=== PATIENT | female | born 1955 | race Caucasian/White ===

== ENCOUNTER 2018-11-28 18:40 | Emergency (ER) | payer SELFPAY ==
[2018-11-28 18:48] VITALS: BP 135/72; PULSE 116; RESP 19; TEMP 38.5; O2SAT 96; BMI 27.9
--- NOTE | 2018-11-28 18:55 | DI.RAD.S_ITS ---
PROCEDURE: XR CHEST 1V INDICATIONS: suspected sepsis TECHNIQUE: One view of the chest was acquired. COMPARISON: [facility], , CHEST 2 VIEW, 10/01/2015, 14:00. FINDINGS: Surgical changes and devices: None. Lungs and pleura: Mild increased pulmonary vasculature. No consolidation. No pleural effusions or pneumothorax. Mediastinum: Mediastinal contours appear normal. Heart size is normal. Bones and chest wall: No suspicious bony lesions. Overlying soft tissues appear unremarkable. Calcification in the kidney region of the right rotator cuff, may represent calcific tendinitis. IMPRESSION: Mild increased pulmonary vasculature markings suggestive of most mild fluid overload. No focal consolidation to suggest pneumonia. Dictated by: Yvon Barnett M.D. on 11/28/2018 at 19:46 Approved by: Yvon Barnett M.D. on 11/28/2018 at 19:49
--- NOTE | 2018-11-28 19:15 | ED.ABDPAIN ---
HPI - Abdominal Pain General Chief Complaint: Abdominal Pain Stated Complaint: diarrhea x4 days,fever, headache Time Seen by Provider: 11/28/18 19:00 Source: patient Mode of arrival: ambulatory Limitations: no limitations History of Present Illness HPI narrative: Patient is a 63-year-old female who presents with ongoing diarrhea and abdominal pain. She says she had crab 4 days ago, and started having diffuse explosive sandpaper like the diarrhea. She says she gets up in the middle of night to have diarrhea last night she was up at least 10 times. She started having fever yesterday she is now having abdominal cramping and pain. She denies any bloody stools. No vomiting denies any nausea she has been trying to keep fluids down she has been drinking 7 up but has a decrease in appetite. She has a previous history of colitis in feels like this might be similar. MD complaint: abdominal pain Quality: cramping Radiation: none Migration to: no migration Related Data Previous Rx's Medication Instructions Recorded azithromycin 500 mg PO DAILY 3 Days #3 tab 11/28/18 Allergies Allergy/AdvReac Type Severity Reaction Status Date / Time No Known Drug Allergies Allergy Verified 11/28/18 18:55 Review of Systems Review of Systems GENERAL: Denies chills, fatigue, malaise, fever, sweats, travel HEENT: Denies sinus pain, ear pain, sore throat, difficulty swallowing, neck pain RESPIRATORY: Denies dyspnea, cough, wheezing, hemoptysis, sputum. CARDIOVASCULAR: Denies chest pain, palpitations, orthopnea, edema GASTROINTESTINAL: see hPI : Denies dysuria, frequency, incontinence, hematuria, urinary retention, flank pain. MUSCULOSKELETAL: Denies weakness, joint pain, or bony pain SKIN: No rash, no erythema, no pruritus NEUROLOGIC: Denies weakness, dizziness, headache, numbness, change in speech, confusion PSYCHIATRIC: No concerning psychosocial issues. 12 point review of systems is negative except for those stated above and HPI [facility] Medical History Colitis (Acute) Gastric ulcer (Acute) Hiatal hernia (Acute) Social History Smoking Status: Current every day smoker Social History Smoking Status: Current every day smoker Exam Initial Vital Signs Initial Vital Signs: Vital Signs Temperature 101.3 F H 11/28/18 18:48 Pulse Rate 116 H 11/28/18 18:48 Respiratory Rate 19 11/28/18 18:48 Blood Pressure 135/72 11/28/18 18:48 Pulse Oximetry 96 11/28/18 18:48 GENERAL: Well-appearing, well-nourished and in no acute distress. HEENT: Head atraumatic,EOMI, pupils reactive, face symmetric, moist mucous membranes CARDIOVASCULAR: Regular rate and rhythm without murmurs, rubs or gallops. RESPIRATORY: Breath sounds equal bilaterally, no wheezes rales or rhonchi. ABDOMEN: Soft, slightly distended, lower abdominal tenderness no localization no guarding no rebound EXTREMITIES: Normal range of motion, no clubbing or edema. Neurovascularly intact NEUROLOGICAL: Alert and oriented x4.Normal gait and speech. Cranial nerves II through XII grossly intact. SKIN: Warm, dry, no laceration, no petechiae, no rashes or lesions. Course Orders Ordered: ED Orders 11/28/18 18:55 XR chest 1V Stat EKG-12 Lead Stat RT Consult Eval and Treat Now 11/28/18 19:05 Complete Blood Count AUTO DIFF Stat Comprehensive Metabolic Panel Stat Lactate (Lactic Acid) Stat Lipase Stat Partial Thromboplastin Time Stat Procalcitonin Stat Prothrombin Time INR Stat 11/28/18 19:17 GI Panel (Film Array) Stat 11/28/18 19:34 Blood Culture Stat Discontinued Medications Acetaminophen (Tylenol) 975 mg PO NOW ONE Stop: 11/28/18 19:11 Last Admin: 11/28/18 19:16 Dose: 975 mg Azithromycin (Zithromax) 500 mg PO NOW ONE Stop: 11/28/18 21:09 Last Admin: 11/28/18 21:12 Dose: 500 mg Sodium Chloride (Normal Saline 0.9%) 1,000 mls @ 1,000 mls/hr IV BOLUS ONE Stop: 11/28/18 19:54 Last Infusion: 11/28/18 20:11 Dose: 1,000 mls/hr Admin: 11/28/18 19:17 Dose: 1,000 mls/hr Sodium Chloride (Normal Saline 0.9%) 1,000 mls @ 1,000 mls/hr IV BOLUS ONE Stop: 11/28/18 20:09 Last Admin: 11/28/18 20:49 Dose: 1,000 mls/hr Ondansetron HCl (Zofran) 4 mg IV NOW ONE Stop: 11/28/18 19:12 Last Admin: 11/28/18 19:16 Dose: 4 mg Vital Signs - 8 hr 11/28/18 18:48 11/28/18 19:16 11/28/18 19:52 Temperature 101.3 F H 101.3 F H Pulse Rate 116 H 98 H Respiratory Rate 19 18 Blood Pressure 135/72 Blood Pressure [Left Arm] 108/67 Pulse Oximetry 96 93 11/28/18 21:10 Temperature 98.2 F Pulse Rate 83 Respiratory Rate 16 Blood Pressure Blood Pressure [Left Arm] 127/66 Pulse Oximetry 96 MDM - Abdominal Pain Lab Data Attestation: I reviewed the patient's lab results. Result diagrams: 11/28/18 19:05 11/28/18 19:05 Lab Results 11/28/18 11/28/18 11/28/18 Range/Units 19:05 19:05 19:05 WBC 9.7 (4.5-11.0) X10^3/uL RBC 4.66 (4.0-5.2) X10^6/uL Hgb 16.1 H (12.0-16.0) g/dL Hct 45.5 (36-46) % MCV 97.7 (80-100) fL MCH 34.5 H (26-34) PG MCHC 35.3 (30-36) % RDW 13.1 (11.6-14.8) % Plt Count 143 L (150-400) X10^3/uL Neut % (Auto) Not Reportable Lymph % (Auto) Not Reportable Fannin % (Auto) Not Reportable Eos % (Auto) Not Reportable Baso % (Auto) Not Reportable Lymph # (Auto) Not Reportable Fannin # (Auto) Not Reportable Baso # (Auto) Not Reportable Total Counted 100 Seg Neutrophils % 41.0 (38-70) % Band Neutrophils % 41.0 H (3-7) % Lymphocytes % (Manual) 17.0 L (25-45) % Monocytes % (Manual) 3.0 (2-11) % Eosinophils % (Manual) 0.0 L (2-4) % Neutrophils # (Manual) 7954 H (8256-2591) /uL RBC Morphology Normal morphology PT 11.5 (10.1-12.7) SECONDS INR 1.0 (0.9-1.3) APTT 29 (26.4-36.2) SECONDS Sodium (137-145) mmol/L Potassium (3.4-5.1) mmol/L Chloride (98-107) mmol/L Carbon Dioxide (22-32) mmol/L BUN (7-17) mg/dL Creatinine (0.52-1.04) mg/dL Estimated GFR (>60) mL/min BUN/Creatinine Ratio (6-22) Glucose (80-110) mg/dL Lactate (0.7-2.1) mmol/L Calcium (8.4-10.2) mg/dL Total Bilirubin (0.2-1.3) mg/dL AST (14-36) IU/L ALT (9-52) IU/L Alkaline Phosphatase (38-126) U/L Total Protein (6.3-8.2) g/dL Albumin (3.5-5.0) g/dL Globulin (1.7-4.1) g/dL Albumin/Globulin Ratio (1.0-2.8) Lipase (23-300) U/L Procalcitonin 0.51 H (<0.5) ng/mL Stl C. cayetanensis PCR (Not Detect) Stool Rotavirus (PCR) (Not Detect) Stool Adenovirus (PCR) (Not Detect) Stool Astrovirus (PCR) (Not Detect) Stool Cryptosporidium PCR (Not Detect) Stl E.coli Shiga Tox PCR (Not Detect) St Sh/Enteroin Ecoli PCR (Not Detect) Stool E coli O157 PCR Stl Enterotoxigenic E PCR (Not Detect) Stool EPEC (PCR) (Not Detect) Stl E. histolytica PCR (Not Detect) Stool Giardia Lamblia PCR (Not Detect) Stl P. shigelloides PCR (Not Detect) St Y.enterocolitica PCR (Not Detect) Stool Vibrio (PCR) (Not Detect) Stl Vibrio cholerae PCR (Not Detect) Stl Enteroaggr Ecoli PCR (Not Detect) Stl Norovirus GI/GII PCR (Not Detect) Campylobacter (PCR) (Not Detect) C. difficile Tox (PCR) (Not Detect) Salmonella (PCR) (Not Detect) 11/28/18 11/28/18 11/28/18 Range/Units 19:05 19:05 19:17 WBC (4.5-11.0) X10^3/uL RBC (4.0-5.2) X10^6/uL Hgb (12.0-16.0) g/dL Hct (36-46) % MCV (80-100) fL MCH (26-34) PG MCHC (30-36) % RDW (11.6-14.8) % Plt Count (150-400) X10^3/uL Neut % (Auto) Lymph % (Auto) Fannin % (Auto) Eos % (Auto) Baso % (Auto) Lymph # (Auto) Fannin # (Auto) Baso # (Auto) Total Counted Seg Neutrophils % (38-70) % Band Neutrophils % (3-7) % Lymphocytes % (Manual) (25-45) % Monocytes % (Manual) (2-11) % Eosinophils % (Manual) (2-4) % Neutrophils # (Manual) (1393-0695) /uL RBC Morphology PT (10.1-12.7) SECONDS INR (0.9-1.3) APTT (26.4-36.2) SECONDS Sodium 135 L (137-145) mmol/L Potassium 3.4 (3.4-5.1) mmol/L Chloride 102 (98-107) mmol/L Carbon Dioxide 19 L (22-32) mmol/L BUN 10 (7-17) mg/dL Creatinine 1.40 H (0.52-1.04) mg/dL Estimated GFR 38.1 L (>60) mL/min BUN/Creatinine Ratio 7.1 (6-22) Glucose 163 H (80-110) mg/dL Lactate 1.1 (0.7-2.1) mmol/L Calcium 9.6 (8.4-10.2) mg/dL Total Bilirubin 0.8 (0.2-1.3) mg/dL AST 48 H (14-36) IU/L ALT 38 (9-52) IU/L Alkaline Phosphatase 69 (38-126) U/L Total Protein 7.8 (6.3-8.2) g/dL Albumin 4.2 (3.5-5.0) g/dL Globulin 3.6 (1.7-4.1) g/dL Albumin/Globulin Ratio 1.2 (1.0-2.8) Lipase 65 (23-300) U/L Procalcitonin (<0.5) ng/mL Stl C. cayetanensis PCR Not detected (Not Detect) Stool Rotavirus (PCR) Not detected (Not Detect) Stool Adenovirus (PCR) Not detected (Not Detect) Stool Astrovirus (PCR) Not detected (Not Detect) Stool Cryptosporidium PCR Not detected (Not Detect) Stl E.coli Shiga Tox PCR Not detected (Not Detect) St Sh/Enteroin Ecoli PCR Not detected (Not Detect) Stool E coli O157 PCR Not Reportable Stl Enterotoxigenic E PCR Not detected (Not Detect) Stool EPEC (PCR) Not detected (Not Detect) Stl E. histolytica PCR Not detected (Not Detect) Stool Giardia Lamblia PCR Not detected (Not Detect) Stl P. shigelloides PCR Not detected (Not Detect) St Y.enterocolitica PCR Not detected (Not Detect) Stool Vibrio (PCR) Not detected (Not Detect) Stl Vibrio cholerae PCR Not detected (Not Detect) Stl Enteroaggr Ecoli PCR Not detected (Not Detect) Stl Norovirus GI/GII PCR Not detected (Not Detect) Campylobacter (PCR) Detected H (Not Detect) C. difficile Tox (PCR) Not detected (Not Detect) Salmonella (PCR) Not detected (Not Detect) MDM Narrative Medical decision making narrative: Patient given 2 L of IV fluids. She states that she overall is feeling much better she actually is hungry and wants to eat for the 1st time in a couple of days. GI panel is positive for Campylobacter. She is given 1 dose of azithromycin and a prescription. She overall does not seem septic she is ambulatory to the restroom and eating and tolerating oral fluids. At this time I did instruct her no Imodium use. Discharge Plan Departure Patient Disposition: Home Clinical Impression: Campylobacter diarrhea Discharge Date/Time: 11/28/18 21:13 Interventions: ED Discharge Assessment Last Done: 11/28/18 21:20 Instructions: DI for Bacterial Gastroenteritis -- Adult Activity Restrictions/Additional Instructions: *You have been diagnosed with Campylobacter diarrhea *What to do: Increased fluid intake recommend things with sugar and electrolytes such as Gatorade like product, Jell-O, applesauce, juice, may increase diet and food as tolerated *Continue to take medications as directed Azithromycin 500 mg once a day for 3 days DO NOT TAKE IMODIUM *Follow up with your primary care provider in 2-3 days *Return to ER if you should have increased pain persistent diarrhea inability to tolerate fluids or any new, worsening or concerning symptoms Prescriptions: New azithromycin 500 mg tablet 500 mg PO DAILY 3 Days Qty: 3 RF: 0 Referrals: [facility] [Outside]
[2018-11-28 19:16] VITALS: TEMP 38.5
[2018-11-28] MEDS: ACETAMINOPHEN 325 MG TABLET 975 MG PO (19:16)
[2018-11-28] MEDS: ONDANSETRON 4 MG/2 ML INJ IV (19:16)
[2018-11-28] MEDS: SODIUM CHLORIDE 0.9% 1,000 ML 1000 ML IV ×2 (19:17→20:49)
[2018-11-28 19:28] LABS: Prothrombin Time 11.5 SECONDS (10.1-12.7)
[2018-11-28 19:31] LABS: Lactate (Lactic Acid) 1.1 mmol/L (0.7-2.1); PTT Partial Thromboplastin Tim 29 SECONDS (26.4-36.2)
[2018-11-28 19:33] LABS: Hematocrit 45.5 % (36-46); Hemoglobin 16.1 g/dL (12.0-16.0); Mean Corpuscular HGB Conc 35.3 % (30-36); Mean Corpuscular Hemoglobin 34.5 PG (26-34); Mean Corpuscular Volume 97.7 fL (80-100); Platelet Count 143 X10^3/uL (150-400); Red Blood Cell Count 4.66 X10^6/uL (4.0-5.2); Red Cell Distribution Width 13.1 % (11.6-14.8); White Blood Cell Count 9.7 X10^3/uL (4.5-11.0)
[2018-11-28 19:34] LABS: Add Manual Diff / Slide Review YES
[2018-11-28 19:35] LABS: Alanine Aminotransferase 38 IU/L (9-52); Albumin 4.2 g/dL (3.5-5.0); Albumin Globulin Ratio 1.2 (1.0-2.8); Alkaline Phosphatase 69 U/L (38-126); Aspartate Aminotransferase 48 IU/L (14-36); BUN Creatinine Ratio 7.1 (6-22); Bilirubin Total 0.8 mg/dL (0.2-1.3); Blood Urea Nitrogen 10 mg/dL (7-17); Calcium 9.6 mg/dL (8.4-10.2); Carbon Dioxide 19 mmol/L (22-32); Chloride 102 mmol/L (98-107); Estimated Glomerular Filt Rate 38.1 mL/min (>60); Globulin 3.6 g/dL (1.7-4.1); Glucose 163 mg/dL (80-110); HEMOLYSIS < 15 (0-50); Lipase 65 U/L (23-300); Potassium 3.4 mmol/L (3.4-5.1); Sodium 135 mmol/L (137-145); Total Protein 7.8 g/dL (6.3-8.2)
[2018-11-28 19:52] VITALS: BP 108/67; PULSE 98; RESP 18; O2SAT 93
[2018-11-28 19:52] LABS: Procalcitonin 0.51 ng/mL (<0.5)
[2018-11-28 20:03] LABS: Total Cells Counted 100
[2018-11-28 20:04] LABS: Neutrophils Absolute Manual 7954 /uL (3000-5900); RBC Morphology Normal Morphology
[2018-11-28 21:05] LABS: Adenovirus F 40/41 Not Detected (Not Detect); Astrovirus Not Detected (Not Detect); Clostridium difficile toxin AB Not Detected (Not Detect); Cryptosporidium Not Detected (Not Detect); Cyclospora cayetanensis Not Detected (Not Detect); Entamoeba histolytica Not Detected (Not Detect); Enteroaggregative E.coli Not Detected (Not Detect); Enteropathogenic E.coli Not Detected (Not Detect); Enterotoxigenic E.coli It/st Not Detected (Not Detect); Giardia lamblia Not Detected (Not Detect); Norovirus GI/GII Not Detected (Not Detect); Plesiomonsa shigelloides Not Detected (Not Detect); Rotavirus A Not Detected (Not Detect); Salmonella Not Detected (Not Detect); Shiga-like toxin-prod E.coli Not Detected (Not Detect); Shigella/Enteroinvasive E.coli Not Detected (Not Detect); Vibrio Not Detected (Not Detect); Vibrio cholerae Not Detected (Not Detect); Yersinia enterocolitica Not Detected (Not Detect)
[2018-11-28 21:07] LABS: Campylobacter Detected (Not Detect)
[2018-11-28 21:10] VITALS: BP 127/66; PULSE 83; RESP 16; TEMP 36.8; O2SAT 96
[2018-11-28] MEDS: AZITHROMYCIN 250 MG TABLET 500 MG PO (21:12)
== END 2018-11-28 21:13 | disposition home or self-care (01) ==
PROVIDERS: Emergency Provider Emergency Medicine
DX: A04.5 Campylobacter enteritis (principal)
CPT/HCPCS: 36415; 36591; 71045; 80053; 83605; 83690; 84145; 85025; 85610; 85730; 87040; 87507; 93005; 93010; 96361; 96374; 99283; 99285; J2405

== ENCOUNTER → 2019-06-17 14:12 | Outpatient (CLI) | payer OTHER, SELFPAY ==
--- NOTE | 2019-06-17 | DI.US.S_ITS ---
PROCEDURE: US CAROTID DOPPLER BI INDICATIONS: MIXED HYPERLIPIDEMIA TECHNIQUE: Color and pulse Doppler interrogation was performed of both carotid systems, with image documentation and velocity measurements. COMPARISON: None. FINDINGS: Stenosis calculations are based on SRU (Society of Radiologists in Ultrasound) criteria. Right side: Brachial blood pressure: 146/75 mm Hg. Common carotid artery peak systolic velocity: 89 cm/sec. Internal carotid artery peak systolic velocity: 70 cm/sec. Internal carotid artery end diastolic velocity: 22 cm/sec. External carotid artery peak systolic velocity: 85 cm/sec. ICA/CCA peak systolic ratio: 0.8. Son scale imaging description: No plaque Percent internal carotid artery stenosis: None. Vertebral artery: Flow direction is antegrade. Left side: Brachial blood pressure: 144/81 mm Hg. Common carotid artery peak systolic velocity: 111 cm/sec. Internal carotid artery peak systolic velocity: 78 cm/sec. Internal carotid artery end diastolic velocity: 27 cm/sec. External carotid artery peak systolic velocity: 93 cm/sec. ICA/CCA peak systolic ratio: 0.7. Son scale imaging description: Minimal plaque at the bifurcation Percent internal carotid artery stenosis: Less than 50%. Vertebral artery: Flow direction is antegrade. IMPRESSION: No hemodynamically significant stenosis identified Dictated by: Clinton Medina M.D. on 06/17/2019 at 18:27 Approved by: Clinton Medina M.D. on 06/17/2019 at 18:28
== END ==
PROVIDERS: PCP Student in an Organized Health Care Education/Training Program; Referring Provider Student in an Organized Health Care Education/Training Program; Visit Provider Student in an Organized Health Care Education/Training Program
DX: E78.2 Mixed hyperlipidemia (principal)
CPT/HCPCS: 93880

== ENCOUNTER → 2019-10-08 09:32 | Outpatient (CLI) | payer OTHER, SELFPAY ==
--- NOTE | 2019-10-08 | DI.US.S_ITS ---
PROCEDURE: US ABDOMEN COMPLETE INDICATIONS: NAUSEA TECHNIQUE: Real-time scanning was performed of the abdominal and retroperitoneal organs, with image documentation. COMPARISON: None. FINDINGS: Liver: The liver demonstrates normal size. The liver demonstrates generalized increased echogenicity. This decreases ultrasound sensitivity for detection of hepatic masses. Gallbladder: No findings of gallstones or sludge are seen. The gallbladder wall is not thickened, measuring 3 mm or less. No specific pericholecystic fluid is seen. The sonographic Nation sign is negative. Biliary ducts: No diaz intrahepatic biliary ductal dilatation is seen. The common hepatic duct measures 5 mm and the common bile duct measures 9 mm. Pancreas: Visualized portions of the pancreas are sonographically normal. Spleen: Spleen is normal in size and homogeneous in echotexture. Kidneys: Kidneys are normal in size and echotexture. Right kidney measures 13.7 cm long; left kidney measures 11.6 cm long. No hydronephrosis or nephrolithiasis. No solid masses. Aorta: Visualized aorta is normal in caliber at less than 3 cm. Mild tortuosity is of the aorta. Iliacs: Proximal common iliac arteries are normal in caliber at less than 2.5 cm. IVC: Intrahepatic inferior vena cava is patent. Miscellaneous: No free abdominal fluid. IMPRESSION: Mild biliary dilatation. As clinically appropriate, an MRCP could be considered for further evaluation (assuming that there is no contraindication to MRI). Normal appearing gallbladder by ultrasound. The liver demonstrates increased echogenicity. This finding is nonspecific, yet it is most commonly attributed to fatty infiltration. Dictated by: Matt Waite M.D. on 10/08/2019 at 11:40 Approved by: Matt Waite M.D. on 10/08/2019 at 11:42
== END ==
PROVIDERS: PCP Student in an Organized Health Care Education/Training Program; Referring Provider Family Medicine; Visit Provider Family Medicine
DX: R11.0 Nausea (principal); K83.8 Other specified diseases of biliary tract
CPT/HCPCS: 76700

== ENCOUNTER → 2019-10-25 11:22 | Outpatient (CLI) | payer OTHER, SELFPAY | PROVIDERS: PCP Student in an Organized Health Care Education/Training Program; Referring Provider Student in an Organized Health Care Education/Training Program; Visit Provider Student in an Organized Health Care Education/Training Program | DX: K30 Functional dyspepsia (principal); Z53.20 Procedure and treatment not carried out because of patient's decision for unspecified reasons ==

== ENCOUNTER → 2019-12-10 11:51 | Outpatient (CLI) | payer OTHER, SELFPAY ==
[2019-12-10 13:13] LABS: Hemoglobin A1C% w Est Avg Glu 5.6 % (4.0-6.0)
[2019-12-10 13:53] LABS: TSH w/ Reflex to FT4 1.73 uIU/mL (0.47-4.68)
== END ==
PROVIDERS: PCP Student in an Organized Health Care Education/Training Program; Referring Provider Internal Medicine Cardiovascular Disease; Visit Provider Internal Medicine Cardiovascular Disease
DX: E78.1 Pure hyperglyceridemia (principal)
CPT/HCPCS: 36415; 83036; 84443

== ENCOUNTER → 2020-05-05 11:36 | Outpatient (CLI) | payer OTHER, SELFPAY ==
[2020-05-05 13:22] LABS: COVID19 -Nasal RAPID Negative (Negative)
== END ==
PROVIDERS: PCP Student in an Organized Health Care Education/Training Program; Visit Provider Nurse Practitioner
DX: Z20.822 Contact with and (suspected) exposure to COVID-19 (principal)
CPT/HCPCS: 87635

== ENCOUNTER 2020-05-07 14:08 | Day surgery (SDC) | payer OTHER, SELFPAY ==
--- NOTE | 2020-05-07 | PATH_ITS ---
[facility] Accession Number: [id number] . 01 Material submitted: . PART A: duodenum - DUODENAL THIRD PORTION PART B: gastrointestinal site - ANTRUM PART C: gastrointestinal site - FUNDUS PART D: gastrointestinal site - BODY PART E: esophagus, E-G Junction - 6 O'CLOCK GE JUNCTION PART F: esophagus, E-G Junction - 9 O'CLOCK GE JUNCTION PART G: esophagus, E-G Junction - 12 O'CLOCK GE JUNCTION PART H: esophagus, E-G Junction - 3 O'CLOCK GE JUNCTION . 01 Clinical history: . DX COLONOSCOPY . 02 Diagnosis: A. Duodenum, Third Portion, Biopsies: Duodenal mucosa with mildly increased intraepithelial lymphocytes; please see comment. Negative for dysplasia or malignancy. . B. Stomach, Antrum, Biopsy: Gastric antral mucosa with mild chronic inflammation. Negative for Helicobacter organisms by immunohistochemistry. Negative for intestinal metaplasia. Negative for dysplasia or malignancy. . C-D: Stomach, Fundus, Body, Biopsies: Gastric body mucosa with minimal chronic inflammation. No evidence of Heliobacter organisms on H/E stain. Negative for intestinal metaplasia. Negative for dysplasia or malignancy. . E. Gastroesophageal Junction, 6 o'clock, Biopsy: Squamocolumnar junctional mucosa with mild chronic inflammation. Negative for specialized intestinal metaplasia, dysplasia or malignancy. . F. Gastroesophageal Junction, 9 o'clock, Biopsy: Squamous mucosa with no diagnostic abnormality. No columnar mucosa present for evaluation. Negative for dysplasia or malignancy. . G-H: Gastroesophageal Junction, 12, 3 o'clock, Biopsies: Squamocolumnar junctional mucosa with no diagnostic abnormality. Negative for intestinal metaplasia. Negative for dysplasia and malignancy. . [facility] 05/13/2020 1507 Local . 02 Comment: Part A: The histologic sections show essentially normal length villi with increased intraepithelial lymphocytosis. The differential diagnosis for this finding includes partially treated or clinically latent celiac sprue, dermatitis herpetiformis, infectious gastroenteritis, stasis, tropical sprue, lymphocytic enterocolitis and other protein allergies. In addition, similar small bowel histologic can be seen in patients with other autoimmune disorders, idiopathic inflammatory bowel disease, and may be linked to use of NSAIDs or olmesartan. . 02 Electronically signed: . Kolby Crowley MD, PhD, Pathologist NPI- [id number] . 01 Gross description: . Part A: DUODENAL THIRD PORTION: Received in formalin is 1 fragment(s) of sanchez, soft tissue measuring 0.3 x 0.2 x 0.2 cm submitted entirely in 1 cassette(s) Part B: ANTRUM: Received in formalin are 2 fragment(s) of sanchez, soft tissue measuring 0.1 x 0.1 x 0.1 cm to 0.2 x 0.2 x 0.2 cm submitted entirely in 1 cassette(s) Part C: FUNDUS: Received in formalin are 2 fragment(s) of sanchez, soft tissue measuring 0.1 x 0.1 x 0.1 cm to 0.2 x 0.2 x 0.2 cm submitted entirely in 1 cassette(s) Part D: BODY: Received in formalin are 2 fragment(s) of sanchez, soft tissue measuring 0.2 x 0.2 x 0.1 cm to 0.3 x 0.3 x 0.3 cm submitted entirely in 1 cassette(s) Part E: 6 O'CLOCK GE JUNCTION: Received in formalin are 2 fragment(s) of sanchez, soft tissue measuring 0.1 x 0.1 x 0.1 cm in aggregate submitted entirely in 1 cassette(s) Part F: 9 O'CLOCK GE JUNCTION: Received in formalin is 1 fragment(s) of sanchez, soft tissue measuring 0.1 x 0.1 x 0.1 cm submitted entirely in 1 cassette(s) Part O'CLOCK GE JUNCTION: Received in formalin is 1 fragment(s) of sanchez, soft tissue measuring 0.1 x 0.1 x 0.1 cm submitted entirely in 1 cassette(s) Part H: 3 O'CLOCK GE JUNCTION: Received in formalin is 1 fragment(s) of sanchez, soft tissue measuring 0.2 x 0.2 x 0.1 cm submitted entirely in 1 cassette(s) /RD 05/10/2020 [facility]8 Local . 02 Microscopic: . B. An immunohistochemical stain was performed to evaluate for Helicobacter organisms and is negative. The control stain showed appropriate reactivity. . * This test was developed and its performance characteristics determined by [email or web address]. It has not been cleared or approved by the U.S. Food and Drug Administration. The FDA has determined that such clearance or approval is not necessary. This test is used for clinical purposes. It should not be regarded as investigational or for research. . 02 Pathologist provided ICD-10: K29.80, K29.70, K20.90 . 02 CPT . 740906, 053082, 938224, 715129, 239493, [id number], 133714, [id number], [id number] Performed at: 01 [facility] [id number] MD Rogelio Guevara MD Phone: [phone] Performed at: 02 [facility] [id number] [place] [id number] MD Eulalia Galarza MD Phone: [phone]
--- NOTE | 2020-05-07 12:14 | P.HP_ITS ---
History of Present Illness History of Present Illness Date Patient Seen: 05/07/20 Chief complaint: DX COLONOSCOPY Narrative: 64 Years Old Female seen today for consideration of a diagnostic EGD. Patient has a known hiatal hernia and history of gastritis. Last EGD in 2003. She has previously been controlled on sucralfate. In the last 4 months, she has had worsening epigastric pain. Right upper quadrant ultrasound on 10/08/2019 showed mild biliary dilatation and likely fatty liver disease. Follow-up MRCP on 12/02/2019 showed no biliary dilatation, duct stone, or stricture. Mild fatty liver disease was seen. She is taking Nexium 40 mg p.o. twice daily, correctly on empty stomach, and sucralfate 1 g p.o. up to 4 times daily with little relief. She does drink alcohol excessively, approximately 4-8 drinks per day and smokes half a pack a day, [id number] history. She does not use caffeine. No regular NSAID use. Denies nausea or vomiting. No dysphagia. Minimal fullness. Overall health issues have been stable, including no major cardiac events for at least 6 weeks. Past Medical History: Ectopic pregnancies, 1978, 1989 G I Bleed: 2007 ARTHRALGIA (ICD-719.40) (EGI81-R65.50) Muscle cramps (ICD-729.82) (SAH86-Q14.2) DYSPEPSIA (ICD-536.8) (KZY58-T57) Neuralgia (ICD-729.2) (WKS88-K78.2) HYPERLIPIDEMIA, MIXED (ICD-272.2) (UZJ79-O88.2) G E R D (ICD-530.81) (XLP97-I48.9) BRONCHITIS-CHRONIC (ICD-491.0) (VNA74-K02.0) SLEEP APNEA, OBSTRUCTIVE (ICD-327.23) (HQC12-S24.33) ALCOHOL DEPENDENCE (ICD-303.90) (RWE39-A36.20) ALCOHOLIC LIVER DISEASE, NOS (ICD-571.3) (HXM39-L82.9) Cigarette smoker (ICD-305.1) (YEB37-P94.210) Past Surgical History: Appendectomy Section x1 Tubal x 2, one medically managed, one surgically treated Upper endoscopy 07/18 or 2014 Colonoscopy for diarrhea, [facility] [place], approximately in her 30s Moh's procedure Family History: No family history of colon cancer of polyps. Social History: Reviewed history from 03/28/2014 and no changes required: Marital Status: Rich [birth year] Children: Son Occupation: Real estate Household Members: Education: Alcohol drinks/day: 4/day Packs/Day: 0.5 Pack years: 30 Patient History Medical History (Updated 12/13/18 @ 00:00 by ) Colitis Gastric ulcer Hiatal hernia Family & Social History Tobacco & Substance use: Smoking Status Current every day smoker alcohol intake frequency 0-2 drinks per day Substance Use Type marijuana Meds Home Medications and Allergies Home Medications Medication Instructions Recorded Confirmed Type Nexium 40 mg PO BID 05/07/20 05/07/20 History albuterol sulfate 2 puff INHALATION Q4H PRN 05/07/20 05/07/20 History fenofibrate nanocrystallized 145 mg PO DAILY 05/07/20 05/07/20 History rosuvastatin 5 mg PO DAILY 05/07/20 05/07/20 History sucralfate 1 g PO QID PRN 05/07/20 05/07/20 History Allergies Allergy/AdvReac Type Severity Reaction Status Date / Time No Known Drug Allergies Allergy Verified 05/07/20 14:18 Review of Systems Review of Systems ROS: Yes All systems reviewed with the patient and are negative except as otherwise documented Exam Narrative Exam Narrative: General: Alert and oriented, appearing stated age and in no acute distress. Head: Head normocephalic/atraumatic. (unchanged from 06/18/2019) Neck: Neck soft and supple, no lymphadenopathy. (unchanged from 06/18/2019) Lungs: Clear to auscultation bilaterally, no wheezes, rhonchi or rales. Heart: normal rate and regular rhythm, no murmurs, rubs, gallops, or clicks, Abdomen: abdomen soft, tender over epigastrium and right lower quadrant, no masses, organomegaly, or abdominal wall hernias, bowel sounds positive. Psych: alert and cooperative; normal mood and affect; normal attention span and concentration; cognition, remote and recent memory appear to be intact, Assessment & Plan Assessment & Plan narrative: 1. Dyspepsia 2. GERD 3. Hiatal hernia 4. Alcohol dependence Plan for EGD. The nature and character of the procedure as well as anticipated results were discussed. The possibility of not completing the procedure was also discussed. Possible complications including aspiration pneumonia, bleeding, perforation and reaction to medications either for sedation or preparation and missed lesions were discussed. Questions were answered and proceeding to the colonoscopy was elected. Informed consent signed. Due to patient's uncontrolled chronic medical issues including hypertriglyceridemia and risk factors sitting excessive alcohol use with alcohol dependence and COPD, will consult MD anesthesia for this high risk patient. I sincerely appreciate the referral allowing me to participate in this patient's care. Please contact me with any questions or concerns.
--- NOTE | 2020-05-07 12:16 | P.OP.ENDO_ITS ---
Operative Date/Time/Diagnoses Date of procedure: 05/07/20 Procedure Notes SCOAP/Timeout: 3:37 pm Procedure in detail: ENDOSCOPIST: Elisa Elizondo MD Anesthesiologist: Dr. Troy Sedation start time: 3:38 p.m. Sedation end time: 3:43 p.m. PROCEDURE: EGD with biopsy INDICATIONS: 1. Dyspepsia 2. GERD 3. Hiatal hernia MEDICATION: Incremental doses of Versed and fentanyl until an appropriate level of sedation was achieved. ASA Ratin DURATION OF PROCEDURE: 17 minutes. COMPLICATIONS: None. LIMITATIONS: None EXTENT OF PROCEDURE: Third portion of the Duodenum. PROCEDURE: The high-definition gastroduodenoscope was introduced into the pos terior oropharynx under direct vision after Hurricaine spray, noted IV sedation, and proper informed consent. The esophagus was identified and intubated under direct visualization. The scope was quickly passed through the esophagus and into the fundus of the stomach. A clear fundal pool was aspirated. The scope was then advanced to the antrum and the pylorus was identified. The scope was passed through the pylorus into the second and third portions of the duodenum. No abnormalities were noted in the duodenum, duodenal bulb or pyloric channel. Random biopsy taken x2. The antrum was mildly edematous and erythematous, targeted biopsy taken x2. J maneuver was produced. No abnormalities were noted of the proximal body, fundus or cardia. Random biopsies taken x2. A small hiatal hernia was noted. Scope was broken out of the J maneuver and the remainder of the stomach was carefully inspected upon withdrawal and was normal. Random biopsy x2. The stomach was carefully deflated of all air on withdrawal. The distal esophagus was carefully inspected and Z-line was noted to be irregular, 4 quadrant biopsies taken. Top of the gastric folds noted at 41 cm from the incisors; circumferential extent of the metaplasia was 39 cm from the incisors; maximal extent of the metaplasia was 39 cm from the incisors. The remainder of the esophagus was normal upon withdrawal. The larynx and vocal cords appeared to be unremarkable. IMPRESSION: 1. Antritis 2. Endoscopically suspected esophageal mucosa, C2M2 PLAN: 1. Follow-up in clinic status post pathology results. The possibility of missed lesion including a malignancy was discussed prior with the patient. Potential alarm symptoms have been discussed and should be reported by the patient immediately.
--- NOTE | 2020-05-07 12:17 | PM.OP.ENDO ---
Operative Date/Time/Diagnoses Date of procedure: 05/07/20 Procedure Notes Procedure in detail: ENDOSCOPIST: Elisa Elizondo MD Sedation RN: Sedation start time: Sedation end time: PROCEDURE: Colonoscopy [] INDICATIONS: 1. Screening for colon cancer MEDICATION: Levsin 0.125 mg sublingual, incremental doses of Versed and fentanyl until appropriate level sedation achieved. ASA CLASS: 2 CECAL WITHDRAWAL TIME: [] COMPLICATIONS: None. EXTENT OF PROCEDURE: Cecum. QUALITY OF PREP: []Good with portions of liquid stool. PROCEDURE: Prior to insertion of the colonoscope, a digital rectal examination was accomplished with circumferential palpation of the distal rectal mucosa without significant findings being noted.[] The high-definition [] colonoscope was passed into the rectum in the usual fashion and advanced over to the cecum without difficulty. The ileocecal valve, appendiceal stoma, and medial wall all could be inspected and []no abnormalities were seen. ASCENDING COLON: J maneuver was produced in the cecum and the proximal folds of the ascending colon were carefully inspected to the hepatic flexure and []. As the colonoscope was withdrawn, care was taken to expose and inspect the haustral folds and no abnormalities were seen. [] HEPATIC FLEXURE: Normal no polyps, diverticula or other abnormalities. [] TRANSVERSE COLON: Normal no polyps, diverticula or other abnormalities. [] DESCENDING COLON: Normal no polyps, diverticula or other abnormalities. [] SIGMOID COLON: Normal no polyps, diverticula or other abnormalities. [] RECTUM: Normal. J maneuver was produced. There was no significant perianal disease. The J maneuver was broken. The remainder of the rectum was inspected and there was [] no external hemorrhoid disease. The scope was withdrawn. IMPRESSION: 1. [] PLAN: 1. [] The possibility of a missed lesion including a malignancy has been discussed with the patient previously. Potential alarm symptoms have been discussed and should be reported immediately.
[2020-05-07 14:38] VITALS: BP 152/88; PULSE 88; RESP 18; TEMP 36.5; O2SAT 97; BMI 27.3
[2020-05-07] MEDS: LACTATED RINGERS 1,000 ML 200 ML IV (15:06)
[2020-05-07 16:05] VITALS: BP 132/82; PULSE 75; RESP 14; TEMP 36.7; O2SAT 96
[2020-05-07 16:10] VITALS: BP 141/82; PULSE 74; RESP 12; O2SAT 97
[2020-05-07 16:15] VITALS: BP 141/82; PULSE 71; RESP 12; TEMP 36.6; O2SAT 98
--- NOTE | 2020-05-07 16:31 | SUR.PHASEII ---
Pt has met criteria for discharge: VSS, denied pain or nausea, able to drink fluids without difficulty, up to toilet to void x 1. Discharge instructions discussed with pt, all questions answered. Transported via W/C to private vehicle.
== END 2020-05-07 16:33 | disposition home or self-care (01) ==
PROVIDERS: PCP Student in an Organized Health Care Education/Training Program; Referring Provider Student in an Organized Health Care Education/Training Program; Visit Provider Student in an Organized Health Care Education/Training Program
PROC: 0DJ08ZZ Inspection of Upper Intestinal Tract, Via Natural or Artificial Opening Endoscopic (ICD-10-PCS; CPT 43235; principal; 2020-05-07 15:15)
DX: K29.50 Unspecified chronic gastritis without bleeding (principal); K21.00 Gastro-esophageal reflux disease with esophagitis, without bleeding; K44.9 Diaphragmatic hernia without obstruction or gangrene; J44.9 Chronic obstructive pulmonary disease, unspecified; F10.20 Alcohol dependence, uncomplicated; F17.210 Nicotine dependence, cigarettes, uncomplicated; K29.80 Duodenitis without bleeding
CPT/HCPCS: 43239

== ENCOUNTER → 2020-06-25 14:40 | Outpatient (CLI) | payer OTHER, SELFPAY ==
[2020-06-25] MEDS: COVID-19 VACC, Ad26(JANSSEN)/PF 0.5 ML IM (14:49)
== END ==
PROVIDERS: PCP Student in an Organized Health Care Education/Training Program; Visit Provider Internal Medicine
DX: Z23 Encounter for immunization (principal)
CPT/HCPCS: 0031A; 91303

== ENCOUNTER → 2020-11-16 08:54 | Outpatient (ROUT) | payer OTHER, SELFPAY ==
[2020-11-16 09:08] LABS: D Dimer 204 ng/mL (<230)
== END ==
PROVIDERS: PCP Student in an Organized Health Care Education/Training Program; Visit Provider Student in an Organized Health Care Education/Training Program
DX: M79.606 Pain in leg, unspecified (principal)
CPT/HCPCS: 85379

== ENCOUNTER → 2021-03-01 14:40 | Outpatient (CLI) | payer OTHER, SELFPAY ==
[2021-03-01 15:24] LABS: Add Manual Diff / Slide Review NO; Basophils Absolute Auto 0 /uL (0-100); Basophils Percent Auto 0.6 % (0-2); Eosinophils Absolute Auto 100 /uL (0-450); Eosinophils Percent Auto 1.7 % (2-4); Hematocrit 41.9 % (36-46); Hemoglobin 14.6 g/dL (12.0-16.0); Lymphocytes Absolute Auto 3000 /uL (1100-4500); Lymphocytes Percent Auto 44.6 % (25-40); Mean Corpuscular HGB Conc 34.8 % (30-36); Mean Corpuscular Hemoglobin 32.4 PG (26-34); Mean Corpuscular Volume 93.3 fL (80-100); Monocytes Absolute Auto 500 /uL (0-900); Monocytes Percent Auto 7.4 % (3-14); Neutrophils Absolute Auto 3100 /uL (1500-7000); Neutrophils Percent Auto 45.7 % (50-75); Platelet Count 231 X10^3/uL (150-400); Red Blood Cell Count 4.49 X10^6/uL (4.0-5.2); Red Cell Distribution Width 12.3 % (11.6-14.8); White Blood Cell Count 6.7 X10^3/uL (4.5-11.0)
== END ==
PROVIDERS: PCP Family Medicine; Referring Provider Family Medicine; Visit Provider Family Medicine
DX: K11.20 Sialoadenitis, unspecified (principal)
CPT/HCPCS: 36415; 85025

== ENCOUNTER → 2021-03-25 08:58 | Outpatient (CLI) | payer OTHER, SELFPAY ==
[2021-03-25 09:39] LABS: Alanine Aminotransferase 26 IU/L (<35); Albumin 4.3 g/dL (3.5-5.0); Albumin Globulin Ratio 1.5 (1.0-2.8); Alkaline Phosphatase 46 U/L (38-126); Aspartate Aminotransferase 38 IU/L (14-36); BUN Creatinine Ratio 19.8 (6-22); Bilirubin Total 0.6 mg/dL (0.2-1.3); Blood Urea Nitrogen 18 mg/dL (7-17); Carbon Dioxide 28 mmol/L (22-32); Chloride 105 mmol/L (98-107); Cholesterol 244 mg/dL (140-199); Estimated Glomerular Filt Rate > 60.0 mL/min (>60); Globulin 2.9 g/dL (1.7-4.1); Glucose 114 mg/dL (80-110); HDL Cholesterol 60 mg/dL (40-60); HEMOLYSIS < 15 (0-50); LDL Cholesterol Calculated 110 mg/dL (<100); Potassium 4.2 mmol/L (3.4-5.1); Sodium 140 mmol/L (137-145); Total Protein 7.2 g/dL (6.3-8.2); Triglycerides 371 mg/dL (35-150)
== END ==
PROVIDERS: PCP Family Medicine; Referring Provider Family Medicine; Visit Provider Family Medicine
DX: E78.1 Pure hyperglyceridemia (principal); R73.9 Hyperglycemia, unspecified
CPT/HCPCS: 36415; 80053; 80061

== ENCOUNTER → 2021-03-28 15:45 | Outpatient (CLI) | payer OTHER, SELFPAY ==
--- NOTE | 2021-03-28 15:46 | DI.CT.S_ITS ---
PROCEDURE: CT SOFT TISSUE NECK W CON INDICATIONS: 65-year-old female with right-sided neck mass. History of smoking and lip cancer TECHNIQUE: After the administration of intravenous contrast, 3.0 mm axial sections acquired from the sella to the aortic arch. Additional oblique axial 3.0 mm sections acquired through the pharynx. 3 mm thick coronal and sagittal reformats were generated. For radiation dose reduction, the following was used: automated exposure control. COMPARISON: None. FINDINGS: Image quality: Excellent. Lymph nodes: No enlarged lymph nodes seen throughout the neck. Vessels: Visualized vasculature appears patent. Neck spaces: The oropharynx, nasopharynx, and pharynx demonstrate no mucosal lesions. The vocal cords, false vocal cords, pyriform sinuses, epiglottis, vallecula, and tongue base all appear normal. Extramucosal spaces appear unremarkable. Glands: The parotid and submandibular glands appear normal. Thyroid gland unremarkable. Miscellaneous: Visualized brain and orbits appear normal. Lung apices appear clear. Superficial soft tissues appear normal. Bones: No suspicious bony lesions. Visualized sinuses and mastoids appear unremarkable. Degenerative arthropathy and disc disease noted in the cervical spine. Rounded subcoracoid densities associated with the right scapula may reflect small loose bodies or prior injury. IMPRESSION: 1. No CT evidence of mass lesion in the neck. Scattered nonenlarged deep cervical lymph nodes probably reactive. No adenopathy. 2. Degenerative cervical spine changes Dictated by: Shubham Mejia M.D. on 03/28/2021 at 16:38 Approved by: Shubham Mejia M.D. on 03/28/2021 at 16:46
== END ==
PROVIDERS: PCP Family Medicine; Referring Provider Family Medicine; Visit Provider Family Medicine
DX: R22.1 Localized swelling, mass and lump, neck (principal); M47.812 Spondylosis without myelopathy or radiculopathy, cervical region; Z85.819 Personal history of malignant neoplasm of unspecified site of lip, oral cavity, and pharynx; Z87.891 Personal history of nicotine dependence
CPT/HCPCS: 70491; Q9967

== ENCOUNTER → 2021-05-02 08:23 | Outpatient (CLI) | payer OTHER, SELFPAY ==
[2021-05-02 09:13] LABS: Hemoglobin A1C% w Est Avg Glu 5.9 % (4.0-6.0)
[2021-05-02 09:22] LABS: Alanine Aminotransferase 27 IU/L (<35); Albumin 4.1 g/dL (3.5-5.0); Albumin Globulin Ratio 1.2 (1.0-2.8); Alkaline Phosphatase 60 U/L (38-126); Aspartate Aminotransferase 34 IU/L (14-36); BUN Creatinine Ratio 17.5 (6-22); Bilirubin Total 0.5 mg/dL (0.2-1.3); Blood Urea Nitrogen 14 mg/dL (7-17); Calcium 9.8 mg/dL (8.4-10.2); Carbon Dioxide 28 mmol/L (22-32); Chloride 106 mmol/L (98-107); Cholesterol 221 mg/dL (140-199); Estimated Glomerular Filt Rate > 60.0 mL/min (>60); Globulin 3.3 g/dL (1.7-4.1); Glucose 115 mg/dL (80-110); HDL Cholesterol 49 mg/dL (40-60); HEMOLYSIS < 15 (0-50); LDL Cholesterol Calculated 129 mg/dL (<100); Potassium 4.2 mmol/L (3.4-5.1); Sodium 137 mmol/L (137-145); Total Protein 7.4 g/dL (6.3-8.2); Triglycerides 214 mg/dL (35-150)
[2021-05-02 10:01] LABS: Add Manual Diff / Slide Review NO; Basophils Absolute Auto 0 /uL (0-100); Basophils Percent Auto 0.4 % (0-2); Eosinophils Absolute Auto 200 /uL (0-450); Hematocrit 38.7 % (36-46); Hemoglobin 13.7 g/dL (12.0-16.0); Lymphocytes Absolute Auto 2600 /uL (1100-4500); Mean Corpuscular HGB Conc 35.3 % (30-36); Mean Corpuscular Volume 93.4 fL (80-100); Monocytes Absolute Auto 900 /uL (0-900); Monocytes Percent Auto 8.6 % (3-14); Neutrophils Absolute Auto 6200 /uL (1500-7000); Platelet Count 254 X10^3/uL (150-400); Red Blood Cell Count 4.15 X10^6/uL (4.0-5.2); Red Cell Distribution Width 12.3 % (11.6-14.8); White Blood Cell Count 9.9 X10^3/uL (4.5-11.0)
== END ==
PROVIDERS: PCP Family Medicine; Referring Provider Family Medicine; Visit Provider Family Medicine
DX: K11.20 Sialoadenitis, unspecified (principal); R22.1 Localized swelling, mass and lump, neck; R73.03 Prediabetes
CPT/HCPCS: 36415; 80053; 80061; 83036; 85025

== ENCOUNTER → 2021-08-18 12:30 | Outpatient (CLI) | payer OTHER, SELFPAY ==
[2021-08-19 08:08] LABS: Candida species Negative (Negative); Gardnerella vaginalis Negative (Negative); Trichomoas vaginalis Negative (Negative)
== END ==
PROVIDERS: PCP Family Medicine; Visit Provider Physician Assistant Medical
DX: N76.0 Acute vaginitis (principal)
CPT/HCPCS: 87480; 87510; 87660

== ENCOUNTER → 2021-10-11 12:26 | Outpatient (CLI) | payer MEDICARE, SELFPAY ==
--- NOTE | 2021-10-11 12:27 | DI.RAD.S_ITS ---
PROCEDURE: XR KNEE LT 3V INDICATIONS: progressive pain TECHNIQUE: 3 views of the knee were acquired. COMPARISON: None. FINDINGS: Bones: No fractures or dislocations. No suspicious bony lesions. Mild medial and lateral compartment osteoarthritis. Soft tissues: No joint effusion. No suspicious soft tissue calcifications. IMPRESSION: Mild osteoarthritis. Dictated by: Tonie Yarbrough MD, PhD on 10/11/2021 at 16:28 Approved by: Tonie Yarbrough MD, PhD on 10/11/2021 at 16:29
== END ==
PROVIDERS: PCP Family Medicine; Referring Provider Family Medicine; Visit Provider Family Medicine
DX: M17.12 Unilateral primary osteoarthritis, left knee (principal); M25.562 Pain in left knee
CPT/HCPCS: 73562

== ENCOUNTER → 2022-05-09 14:44 | Outpatient (CLI) | payer OTHER, SELFPAY ==
--- NOTE | 2022-05-09 14:46 | DI.MG.S_ITS ---
BILATERAL DIGITAL SCREENING MAMMOGRAM 3D/2D WITH CAD: 05/09/2022 CLINICAL: Routine screening. Comparison is made to exam dated: 12/22/2011 mammogram - [facility]. Both breasts are heterogeneously dense, which may obscure small masses (category c / 51-75% glandular tissue). Current study was also evaluated with a Computer Aided Detection (CAD) system. No significant masses, calcifications, or other findings are seen in either breast. There has been no significant interval change. IMPRESSION: NEGATIVE There is no mammographic evidence of malignancy. A 1 year screening mammogram is recommended. Based on the Tyrer Cuzick model (a risk assessment model) the patient's lifetime risk is 9.2% and her 10 year risk is 4.5%. According to the ACR, ACS, and NCCN guidelines, an annual breast MRI exam along with mammogram is recommended if the patient's lifetime risk is 20% or greater. This exam was interpreted at Station ID: [id number]. NOTE: For mammograms, a report in lay terms will be sent to the patient. Approximately 15% of breast malignancies will not be visualized mammographically. In the management of a palpable breast mass, a negative mammogram must not discourage biopsy of a clinically suspicious lesion. Electronically Signed By: Yvon montelongo/pamela:05/10/2022 10:38:57 letter sent: Normal Exam ACR BI-RADS Category 1: Negative [id number]
== END ==
PROVIDERS: PCP Family Medicine; Referring Provider Family Medicine; Visit Provider Family Medicine
DX: Z12.31 Encounter for screening mammogram for malignant neoplasm of breast (principal)
CPT/HCPCS: 77063; 77067

== ENCOUNTER → 2022-06-01 | Outpatient (CLI) | payer OTHER, SELFPAY ==
--- NOTE | 2022-06-01 11:17 | DI.CT.S_ITS ---
PROCEDURE: CT SOFT TISSUE NECK W CON INDICATIONS: Anterior LF Neck Mass TECHNIQUE: After the administration of intravenous contrast, 3.0 mm axial sections acquired from the sella to the aortic arch. 3 mm thick coronal and sagittal reformats were generated. For radiation dose reduction, the following was used: automated exposure control. COMPARISON: [facility], CT, CT SOFT TISSUE NECK W CON, 03/28/2021, 15:54. FINDINGS: Image quality: Excellent. Lymph nodes: No enlarged lymph nodes seen throughout the neck. Vessels: Visualized vasculature appears patent. Neck spaces: The oropharynx, nasopharynx, and pharynx demonstrate no mucosal lesions. The vocal cords, false vocal cords, pyriform sinuses, epiglottis, vallecula, and tongue base all appear normal. Extramucosal spaces appear unremarkable. Glands: The parotid and submandibular glands appear normal. Thyroid gland unremarkable. Miscellaneous: Visualized brain and orbits appear normal. Lung apices appear clear. Superficial soft tissues appear normal. Bones: No suspicious bony lesions. Visualized sinuses and mastoids appear unremarkable. Multilevel degenerative disc disease and arthropathy in the lumbar spine. Incidental calcified loose bodies associated with the right glenohumeral joint BB marker in left lower neck does not correspond with soft tissue mass lesion. Prominent subcutaneous fat noted IMPRESSION: No evidence of mass lesion. Marked palpable abnormality in the left lower neck corresponds with prominent subcutaneous fat. Degenerative disc disease and arthropathy in the cervical spine. Incidental right glenohumeral calcified loose bodies Approved by: Shubham Mejia M.D. on 06/01/2022 at 17:05
== END ==
PROVIDERS: PCP Family Medicine; Referring Provider Family Medicine; Visit Provider Family Medicine
DX: R22.1 Localized swelling, mass and lump, neck (principal); M50.30 Other cervical disc degeneration, unspecified cervical region; M47.812 Spondylosis without myelopathy or radiculopathy, cervical region
CPT/HCPCS: 70491; Q9967

== ENCOUNTER → 2022-07-28 08:00 | Outpatient (CLI) | payer OTHER, SELFPAY | PROVIDERS: PCP Family Medicine; Referring Provider Family Medicine; Visit Provider Surgery | DX: Z12.11 Encounter for screening for malignant neoplasm of colon (principal); Z12.12 Encounter for screening for malignant neoplasm of rectum ==

== ENCOUNTER 2022-09-22 12:00 | Day surgery (SDC) | payer OTHER, SELFPAY | END 2022-09-22 12:05 | disposition home or self-care (01) | LOC: ENDO 03-01 12:13 | PROVIDERS: PCP Family Medicine; Referring Provider Surgery; Visit Provider Surgery | DX: Z53.09 Procedure and treatment not carried out because of other contraindication (principal) ==

== ENCOUNTER → 2023-02-06 08:26 | Outpatient (CLI) | payer OTHER, SELFPAY ==
--- NOTE | 2023-02-06 09:07 | DI.RAD.S_ITS ---
PROCEDURE: XR CHEST 2V INDICATIONS: Chronic cough TECHNIQUE: 2 views of the chest were acquired. COMPARISON: [facility], CR, XR CHEST 1V, 11/28/2018, 19:02. FINDINGS: Surgical changes and devices: None. Lungs and pleura: Lungs are clear. No pleural effusions or pneumothorax. Mediastinum: Mediastinal contours are normal. Heart size is normal. Bones and chest wall: No suspicious bony abnormalities. Soft tissues appear unremarkable. IMPRESSION: No acute cardiopulmonary abnormality is seen. Dictated by: Saqib Escalante M.D. on 02/06/2023 at 13:27 Approved by: Saqib Escalante M.D. on 02/06/2023 at 13:29
[2023-02-06 09:13] LABS: Add Manual Diff / Slide Review NO; Basophils Absolute Auto 0 /uL (0-100); Basophils Percent Auto 0.5 % (0-2); Eosinophils Absolute Auto 200 /uL (0-450); Eosinophils Percent Auto 2.5 % (2-4); Hematocrit 42.2 % (36-46); Hemoglobin 14.7 g/dL (12.0-16.0); Lymphocytes Absolute Auto 2600 /uL (1100-4500); Lymphocytes Percent Auto 39.8 % (25-40); Mean Corpuscular HGB Conc 34.9 % (30-36); Mean Corpuscular Volume 94.6 fL (80-100); Monocytes Absolute Auto 500 /uL (0-900); Monocytes Percent Auto 8.2 % (3-14); Neutrophils Absolute Auto 3200 /uL (1500-7000); Platelet Count 204 X10^3/uL (150-400); Red Blood Cell Count 4.46 X10^6/uL (4.0-5.2); Red Cell Distribution Width 12.5 % (11.6-14.8); White Blood Cell Count 6.5 X10^3/uL (4.5-11.0)
[2023-02-06 09:19] LABS: Hemoglobin A1C% w Est Avg Glu 6.2 % (4.0-6.0)
[2023-02-06 09:25] LABS: Alanine Aminotransferase 25 IU/L (<35); Albumin 4.3 g/dL (3.5-5.0); Albumin Globulin Ratio 1.4 (1.0-2.8); Alkaline Phosphatase 62 U/L (38-126); Aspartate Aminotransferase 35 IU/L (14-36); BUN Creatinine Ratio 21.2 (6-22); Bilirubin Total 0.6 mg/dL (0.2-1.3); Blood Urea Nitrogen 18 mg/dL (7-17); Carbon Dioxide 27 mmol/L (22-32); Chloride 104 mmol/L (98-107); Cholesterol 268 mg/dL (140-199); Estimated Glomerular Filt Rate > 60 mL/min (>60); Glucose 120 mg/dL (80-110); HDL Cholesterol 56 mg/dL (40-60); HEMOLYSIS < 15 (0-50); Potassium 4.3 mmol/L (3.4-5.1); Sodium 137 mmol/L (137-145); Total Protein 7.3 g/dL (6.3-8.2); Triglycerides 439 mg/dL (35-150)
== END ==
PROVIDERS: PCP Family Medicine; Referring Provider Family Medicine; Visit Provider Family Medicine
DX: Z00.00 Encounter for general adult medical examination without abnormal findings (principal); E78.1 Pure hyperglyceridemia; R05.3 Chronic cough
CPT/HCPCS: 36415; 71046; 80053; 80061; 83036; 84443; 85025

== ENCOUNTER → 2023-07-17 14:12 | Outpatient (CLI) | payer OTHER, SELFPAY ==
--- NOTE | 2023-07-17 14:13 | DI.RAD.S_ITS ---
PROCEDURE: XR LUMBAR SPINE MIN 4V INDICATIONS: Low back pain TECHNIQUE: 5 views of the lumbar spine were acquired, including bilateral oblique views. COMPARISON: None. FINDINGS: Bones: 5 nonrib-bearing vertebrae are present. Levocurvature of the lumbar spine. Straightening of the normal lumbar lordosis. Mild anterolisthesis of L2 on L3, L3 on L4 and L4 on L5. There is multilevel facet arthropathy, worse at L4-5 and L5-S1. Mild multilevel disc height loss with degenerative endplate changes and spurring is present. No vertebral body compression fractures. No suspicious bony lesions. Soft tissues: Overlying bowel gas pattern is normal. No suspicious soft tissue calcifications. Atherosclerotic vascular calcifications. Oblique images: No pars defects. IMPRESSION: Mild multilevel degenerative changes of the lumbar spine. Dictated by: Joel Camargo M.D. on 07/17/2023 at 15:56 Approved by: Joel Camargo M.D. on 07/17/2023 at 15:57
== END ==
PROVIDERS: PCP Family Medicine; Referring Provider Physician Assistant; Visit Provider Physician Assistant
DX: M47.816 Spondylosis without myelopathy or radiculopathy, lumbar region (principal); M47.817 Spondylosis without myelopathy or radiculopathy, lumbosacral region; M54.50 Low back pain, unspecified; M43.16 Spondylolisthesis, lumbar region
CPT/HCPCS: 72110

== ENCOUNTER 2023-10-31 10:19 | Outpatient (CLI) | payer OTHER, SELFPAY ==
[2023-10-31 10:25] VITALS: BP 169/92; PULSE 96; RESP 18; TEMP 36.5; O2SAT 96
[2023-10-31 10:50] VITALS: BP 174/80; PULSE 82; RESP 18; O2SAT 97
[2023-10-31 10:55] VITALS: BP 172/84; PULSE 77; RESP 15; O2SAT 97
[2023-10-31] MEDS: DEXAMETHASONE 10 MG/ML VIAL INJ (10:55)
[2023-10-31] MEDS: iopamidoL 15 ML VIAL 3 ML INJ (10:55)
[2023-10-31] MEDS: LIDOCAINE 1% (PF) 5 ML INJ (10:56)
[2023-10-31 11:00] VITALS: BP 172/87; PULSE 77; RESP 20; O2SAT 96
--- NOTE | 2023-10-31 11:00 | DI.RAD.S_ITS ---
PROCEDURE: PAIN L INTERLAMINAR/CAUDAL INJ INDICATIONS: L4-5 interlaminar YVONNE COMPARISON: [facility], MR, MR LUMBAR SPINE WO CON, 10/01/2023, 10:46. [facility], CR, XR LUMBAR SPINE MIN 4V, 07/17/2023, 14:20. FINDINGS: Fluoroscopic spot filming was performed to verify placement of a spinal needle at the L4-L5 level, as labeled on the films. Appropriate location of the needle tip was confirmed by injection of iodinated contrast. IMPRESSION: Intraprocedural examination within normal limits. Dictated by: Matt Waite M.D. on 10/31/2023 at 18:50 Approved by: Matt Waite M.D. on 10/31/2023 at 18:51
[2023-10-31 11:05] VITALS: BP 165/88; PULSE 76; RESP 16; O2SAT 96
--- NOTE | 2023-10-31 12:03 | P.PCN_ITS ---
Date/Time/Diagnoses Date of procedure: 10/31/23 Time of procedure: 11:00 Procedure Notes Physician: Cullen Hartman Total Fluoroscopy time (seconds): 14 Total sedation minutes: 0 Procedure in detail & Post-procedure care: L4-5 Interlaminar Epidural Steroid Injection Indications: Priyanka is presenting for treatment of lumbar radiculopathy with low back and leg pain. Preoperative diagnosis: Lumbar radiculopathy Postoperative diagnosis: Same Focused Examination: Ax3 Mood and affect are normal Vital Signs: VSS Consent: Following review of allergies and potential side effects/complications, including, but not necessarily limited to, infection, allergic reaction, local tissue breakdown, stroke, temporary or permanent nerve injury, paralysis, and possible , the patient indicated that they understood and agreed to proceed.? An informed consent document was signed by the patient, witnessed by a nurse and placed in the patient's chart.? Additionally, other treatment options including medications and physical therapy were reviewed with the patient. All questions were answered. Site was then marked. Anesthesia: Local Position: Prone Monitoring: NIBP, Pulse oximetry, 3 lead EKG Needle used: 18 G 3.5? Tuohy Contrast: Isovue 300M Injectate: Dexamethasone 10 mg with 1% lidocaine 2 mL Technique: The skin was prepped with chloraprep and then draped in a sterile fashion. Time out was performed as per protocol. Oxygen applied via NC. Skin and subcutaneous structures of the needle entry site was then infiltrated with 3 mL of lidocaine 1%. Under AP, lateral and contralateral oblique fluoroscopic control, the Tuohy needle was guided into the L4-5 epidural space. The space was accessed with loss of resistance technique. Isovue 300M was then injected and the spread was consistent with the epidural space. There was no evidence for intravascular or intrathecal uptake. After negative aspiration, the above- mentioned injectate was then slowly administered and the needle withdrawn. The patient expressed no unusual discomfort or paresthesias during the injection. Band-Aids applied to injection sites. EBL: less than 1 ml Complications: None Post Procedure: Patient was taken to the recovery and monitored. The patient was provided a Pain Log to continue to record the patient's response to the target- specific procedure prior to the patient's follow-up visit with the referring physician. Patient was stable upon discharge. Detailed post procedure instructions were provided. Patient was asked to call in the event of worsening pain, fever, weakness, numbness or bladder or bowel incontinence.
== END 2023-10-31 11:11 | disposition home or self-care (01) ==
LOC: RAD 10:19
PROVIDERS: PCP Family Medicine; Referring Provider Anesthesiology; Visit Provider Anesthesiology
DX: M54.16 Radiculopathy, lumbar region (principal)
CPT/HCPCS: 62323; J1100

== ENCOUNTER → 2023-11-30 13:55 | Outpatient (CLI) | payer OTHER, SELFPAY ==
--- NOTE | 2023-11-30 13:56 | DI.RAD.S_ITS ---
PROCEDURE: XR CERVICAL SPINE 4V OR 5V INDICATIONS: Neck pain TECHNIQUE: 5 views of the cervical spine acquired. COMPARISON: None. FINDINGS: Bones: Lower cervical spine disc space narrowing. Arthropathy in the mid cervical spine. Degenerative grade 1 anterior spondylolisthesis C5-6. Oblique images show foraminal stenosis involving C3-4, C4-5 and C5-6 on the right and C4-5 and C5-6 and a left Soft tissues: No prevertebral soft tissue swelling. IMPRESSION: Degenerative disc disease and arthropathy associated with bilateral foraminal stenosis Approved by: Shubham Mejia M.D. on 12/03/2023 at 18:34
== END ==
PROVIDERS: PCP Family Medicine; Referring Provider Anesthesiology; Visit Provider Anesthesiology
DX: M47.812 Spondylosis without myelopathy or radiculopathy, cervical region (principal); M50.30 Other cervical disc degeneration, unspecified cervical region; M48.02 Spinal stenosis, cervical region; M43.12 Spondylolisthesis, cervical region; M54.2 Cervicalgia
CPT/HCPCS: 72050

== ENCOUNTER 2024-04-01 11:38 | Emergency (ER) | payer OTHER, SELFPAY ==
[2024-04-01] VITALS (10 sets, daily range): BP systolic 131–175; BP diastolic 76–110; PULSE 72–105; RESP 15–30; TEMP 36.7; O2SAT 94–98; BMI 30.4
--- NOTE | 2024-04-01 11:44 | EKG_ITS ---
[address] [address] Test Date: 2024-04-01 Pat Name: Priyanka Braga Department: Room: Gender: Female Mediator: : [id number] Requested By: Order Number: [id number] Reading MD: Jake Michel Measurements Intervals [place] Rate: 104 P: 67 AR: 156 QRS: -9 QRSD: 80 T: 80 QT: 348 QTc: 457 Interpretive Statements Sinus tachycardia with premature atrial complexes Possible Anterior infarct , age undetermined Electronically Signed On 04-01-2024 19:43:24 PST by Jake Michel
--- NOTE | 2024-04-01 11:44 | DI.RAD.S_ITS ---
PROCEDURE: XR CHEST 1V INDICATIONS: chest pain TECHNIQUE: One view of the chest was acquired. COMPARISON: [facility], CR, XR CHEST 2V, 02/06/2023, 9:12. FINDINGS: Surgical changes and devices: None. Lungs and pleura: Lungs are clear. No pleural effusions or pneumothorax. Mediastinum: Mediastinal contours appear normal. Heart size is normal. Bones and chest wall: No suspicious bony lesions. Overlying soft tissues appear unremarkable. IMPRESSION: No acute pulmonary process. Dictated by: Maryan Brizuela M.D. on 04/01/2024 at 12:43 Approved by: Maryan Brizuela M.D. on 04/01/2024 at 12:43
[2024-04-01 12:13] LABS: Add Manual Diff / Slide Review NO; Basophils Absolute Auto 100 /uL (0-100); Basophils Percent Auto 0.8 % (0-2); Eosinophils Absolute Auto 200 /uL (0-450); Eosinophils Percent Auto 3.2 % (2-4); Hematocrit 43.4 % (36-46); Hemoglobin 15.1 g/dL (12.0-16.0); Lymphocytes Absolute Auto 3200 /uL (1100-4500); Lymphocytes Percent Auto 43.3 % (25-40); Mean Corpuscular HGB Conc 34.8 % (30-36); Mean Corpuscular Hemoglobin 33.4 PG (26-34); Mean Corpuscular Volume 95.9 fL (80-100); Monocytes Absolute Auto 600 /uL (0-900); Monocytes Percent Auto 8.1 % (3-14); Neutrophils Absolute Auto 3300 /uL (1500-7000); Neutrophils Percent Auto 44.6 % (50-75); Platelet Count 230 X10^3/uL (150-400); Red Blood Cell Count 4.53 X10^6/uL (4.0-5.2); Red Cell Distribution Width 12.4 % (11.6-14.8); White Blood Cell Count 7.4 X10^3/uL (4.5-11.0)
[2024-04-01 12:18] LABS: Prothrombin Time 11.8 SECONDS (9.4-12.5)
[2024-04-01 12:21] LABS: PTT Partial Thromboplastin Tim 29 SECONDS (25.1-36.5)
[2024-04-01 12:22] LABS: Alanine Aminotransferase 40 IU/L (<35); Albumin 4.6 g/dL (3.5-5.0); Albumin Globulin Ratio 1.4 (1.0-2.8); Alkaline Phosphatase 71 U/L (38-126); Aspartate Aminotransferase 59 IU/L (14-36); BUN Creatinine Ratio 17.6 (6-22); Bilirubin Total 0.5 mg/dL (0.2-1.3); Blood Urea Nitrogen 13 mg/dL (7-17); Calcium 9.5 mg/dL (8.4-10.2); Carbon Dioxide 21 mmol/L (22-32); Chloride 107 mmol/L (98-107); Creatine Kinase 132 U/L (30-135); Estimated Glomerular Filt Rate > 60 mL/min (>60); Globulin 3.2 g/dL (1.7-4.1); Glucose 122 mg/dL (80-110); HEMOLYSIS < 15 (0-50); Lipase 61 U/L (23-300); Magnesium 1.3 mg/dL (1.6-2.3); Potassium 3.9 mmol/L (3.4-5.1); Sodium 138 mmol/L (137-145); Total Protein 7.8 g/dL (6.3-8.2)
--- NOTE | 2024-04-01 12:29 | ED_ITS ---
HPI - Chest Pain General Chief Complaint: Chest Pain Stated Complaint: chest pain, high bp, rapid heart rate Time Seen by Provider: 04/01/24 12:09 Source: patient Mode of arrival: Family Vehicle Limitations: no limitations History of Present Illness HPI narrative: Patient here for off and on sharp bilateral inframammary pain that does not radiate, several episodes in the past 6 weeks but not every day. Sometimes no discomfort during certain weeks. Has had off and on palpitations. No symptoms at this time. Patient called primary care, Dr. Soni and was informed to come here, this made her more anxious. Heart rate and blood pressure noted. She does not take blood pressure medication but does take cholesterol medication. No prior history of heart attack strokes or diabetes but she does smoke. Father has history of MA but no other family members. Related Data Home Medications Medication Instructions Recorded Confirmed sucralfate 1 gram tablet 1 g PO QID PRN Dyspepsia 05/07/20 11/27/23 Previous Rx's Medication Instructions Recorded esomeprazole magnesium 40 mg 40 mg PO BID #90 caps 03/31/22 capsule,delayed release meloxicam 15 mg tablet 15 mg PO DAILY #30 tabs 02/22/23 triamcinolone acetonide 0.5 % 1 applic topical BID #15 grams 04/20/23 topical cream estradiol 0.01% (0.1 mg/gram) 0.25 appful vaginal BEDTIME #42.5 07/11/23 vaginal cream grams rosuvastatin 5 mg tablet 5 mg PO DAILY #90 tabs 07/19/23 cefuroxime axetil 250 mg tablet 250 mg PO BID #20 tabs 08/08/23 ketoconazole 2 % shampoo 1 applic topical 3XW #120 mL 08/08/23 pregabalin 50 mg capsule (Lyrica) 50 mg PO BID #60 caps 02/16/24 albuterol sulfate 90 mcg/actuation 2 puff inhalation Q4H PRN for 02/20/24 aerosol inhaler dyspnea #6.7 grams fenofibrate 160 mg tablet 160 mg PO DAILY #90 tabs 02/20/24 methocarbamol 500 mg tablet 500 mg PO TID PRN mm strain #30 03/10/24 tabs pantoprazole 20 mg tablet,delayed 20 mg PO DAILY #90 tabs 03/28/24 release Allergies Allergy/AdvReac Type Severity Reaction Status Date / Time No Known Drug Allergies Allergy Verified 04/01/24 11:50 Review of Systems Review of Systems Narrative: GENERAL: Negative chills, fatigue, malaise, fever, sweats. HEENT: Negative sinus pain, ear pain, sore throat RESPIRATORY: Positive dyspnea, negative cough CARDIOVASCULAR: Positive chest pain, palpitations GASTROINTESTINAL: Negative nausea, vomiting, abdominal pain : Negative dysuria, frequency, hematuria MUSCULOSKELETAL: Negative muscle or bony pain SKIN: Negative rash, skin lesions NEUROLOGIC: Negative weakness, numbness ROS Unobtainable: All systems reviewed & are unremarkable except as noted in HPI and below Patient History Medical History Neck pain Lumbar spondylosis Low back pain Neurogenic claudication Lumbar radiculopathy Refractory sinusitis Gastritis Skin lesion Lipoma Cough Left knee pain Vaginitis Lumbar strain Pre-diabetes Wears glasses Fractures Tubal Skin cancer (~2017) Hypertriglyceridemia Neck mass Sialoadenitis of submandibular gland Hiatal hernia Gastric ulcer Colitis Surgical History Anesthesia Status post Mohs surgery (~2017) Status post surgical removal of both fallopian tubes (~1979) History of appendectomy (~1979) Family History Father Cancer History of heart disease Mother Cancer History of heart disease Sister Alcoholism Social History household members: spouse Smoking Status: Current every day smoker alcohol intake: current Smoking Status: Current every day smoker tobacco type: cigarettes alcohol intake frequency: 3 or more drinks per day Alcohol type: hard liquor Exam Narrative Exam Narrative: GENERAL: in no distress, not toxic not dyspneic HEAD: Normocephalic. EYES: Pupils equal round ENT: Mucous membranes moist. NECK: Trachea midline. CARDIOVASCULAR: Regular rate and rhythm, tachycardic RESPIRATORY: Clear to auscultation. Breath sounds equal bilaterally. No wheezes, rales, or rhonchi. GASTROINTESTINAL: Abdomen soft, non-tender EXTREMITIES: No gross deformities. BACK: No flank tenderness. NEURO: AOx4. SKIN: Warm and dry PSYCH: Not anxious, is cooperative Initial Vital Signs Initial Vital Signs: Vital Signs Temperature 98.0 F 12/17/24 11:45 Pulse Rate 105 H 04/01/24 11:45 Respiratory Rate 18 04/01/24 11:45 Blood Pressure 172/109 H 04/01/24 11:45 Pulse Oximetry 98 04/01/24 11:45 Oxygen Delivery Method Room Air 04/01/24 11:45 Course Orders Ordered: Discontinued Medications Aspirin (Aspirin 81 Mg Chew Tab) 324 mg PO NOW ONE Stop: 04/01/24 11:45 Last Admin: 04/01/24 12:16 Dose: Not Given Documented By: RLS Vital Signs Vital signs: Vital Signs - 8 hr 04/01/24 11:45 04/01/24 11:55 04/01/24 11:56 Temperature 98.0 F Pulse Rate 105 H 101 H Respiratory Rate 18 30 H Blood Pressure 172/109 H 137/89 Pulse Oximetry 98 Oxygen Delivery Method Room Air 04/01/24 12:00 04/01/24 12:00 04/01/24 12:30 Temperature Pulse Rate 91 H Respiratory Rate 17 Blood Pressure 175/81 H 152/95 H Pulse Oximetry Oxygen Delivery Method 04/01/24 12:30 04/01/24 13:00 04/01/24 13:00 Temperature Pulse Rate 89 81 Respiratory Rate 23 19 Blood Pressure 131/76 Pulse Oximetry 94 94 Oxygen Delivery Method 04/01/24 13:59 04/01/24 13:59 04/01/24 14:00 Temperature Pulse Rate 78 81 Respiratory Rate 19 20 Blood Pressure 161/82 H Pulse Oximetry 96 95 Oxygen Delivery Method 04/01/24 14:01 04/01/24 14:01 04/01/24 14:30 Temperature Pulse Rate 98 H 72 Respiratory Rate 15 17 Blood Pressure 141/110 H Pulse Oximetry 96 95 Oxygen Delivery Method 04/01/24 14:30 Temperature Pulse Rate Respiratory Rate Blood Pressure 151/83 H Pulse Oximetry Oxygen Delivery Method MDM - Chest Pain Lab Data 04/01/24 12:01 04/01/24 12:01 Labs: Lab Results 04/01/24 04/01/24 Range/Units 12:01 13:59 WBC 7.4 (4.5-11.0) X10^3/uL RBC 4.53 (4.0-5.2) X10^6/uL Hgb 15.1 (12.0-16.0) g/dL Hct 43.4 (36-46) % MCV 95.9 (80-100) fL MCH 33.4 (26-34) PG MCHC 34.8 (30-36) % RDW 12.4 (11.6-14.8) % Plt Count 230 (150-400) X10^3/uL Neut % (Auto) 44.6 L (50-75) % Lymph % (Auto) 43.3 H (25-40) % Terry % (Auto) 8.1 (3-14) % Eos % (Auto) 3.2 (2-4) % Baso % (Auto) 0.8 (0-2) % Neut # (Auto) 3300 (8258-8904) /uL Lymph # (Auto) 3200 (6984-9552) /uL Terry # (Auto) 600 (0-900) /uL Eos # (Auto) 200 (0-450) /uL Baso # (Auto) 100 (0-100) /uL PT 11.8 (9.4-12.5) SECONDS INR 1.0 (0.9-1.3) APTT 29 (25.1-36.5) SECONDS D-Dimer 517 H (<500) ng/ml Sodium 138 (137-145) mmol/L Potassium 3.9 (3.4-5.1) mmol/L Chloride 107 (98-107) mmol/L Carbon Dioxide 21 L (22-32) mmol/L BUN 13 (7-17) mg/dL Creatinine 0.74 (0.52-1.04) mg/dL Estimated GFR > 60 (>60) mL/min BUN/Creatinine Ratio 17.6 (6-22) Glucose 122 H (80-110) mg/dL Calcium 9.5 (8.4-10.2) mg/dL Magnesium 1.3 L (1.6-2.3) mg/dL Total Bilirubin 0.5 (0.2-1.3) mg/dL AST 59 H (14-36) IU/L ALT 40 H (<35) IU/L Alkaline Phosphatase 71 (38-126) U/L Total Creatine Kinase 132 124 (30-135) U/L Troponin I < 0.012 < 0.012 (0.01-0.034) ng/mL NT-Pro-B Natriuret Pep 72 (<125) pg/mL Total Protein 7.8 (6.3-8.2) g/dL Albumin 4.6 (3.5-5.0) g/dL Globulin 3.2 (1.7-4.1) g/dL Albumin/Globulin Ratio 1.4 (1.0-2.8) Lipase 61 (23-300) U/L [facility] Narrative Medical decision making narrative: Patient here for off and on sharp bilateral inframammary pain that does not radiate, several episodes in the past 6 weeks but not every day. Sometimes no discomfort during certain weeks. Has had off and on palpitations. No symptoms at this time. Patient called primary care, Dr. Soni and was informed to come here, this made her more anxious. Heart rate and blood pressure noted. She does not take blood pressure medication but does take cholesterol medication. No prior history of heart attack strokes or diabetes but she does smoke. Father has history of MA but no other family members. After history and exam EKG CBC CMP troponin x2, patient asymptomatic at this time. No nitro indicated. Chest x-ray BNP D-dimer [facility] Medical records reviewed: No recent visit for this complaint Differential considered: Includes but not limited to pulmonary embolism STEMI non-STEMI work dissection anxiety Lab Test results independently reviewed as above. Pertinent findings: WBC 7.4 hemoglobin 15.1 sodium 138 potassium 3.9 BUN 13 troponin less than 0.012 D-dimer 517 Independently reviewed EKG sinus tachycardia rate [address] elevation Imaging studies independently reviewed: Chest x-ray no acute finding Consultations: Patient declined cardiology consult Treatments: Aspirin Re-evaluations: 2:50 p.m.. Updated patient results awaiting repeat troponin. Will need CT imaging for PE rule out. At this time. Patient has declined any further testing. Patient pleasant and cooperative. She has not angry. She does understand need for further testing and possible admission and stress test. I implored with her to stay, she is awake alert, she declined to stay. Risk of leaving against medical advice include but not limited heart attack stroke permanent injury worsening symptoms loss of limb or organ tissue. Discussion: Patient has decided to leave against medical advice Diagnosis: Chest pain Discharge Plan Departure Patient Disposition: Left Against Medical Advice Clinical Impression: Chest pain Qualifiers: Chest pain type: unspecified Qualified Code(s): R07.9 - Chest pain, unspecified Instructions: DI for Chest Pain, Refusal of Consent to Treatment (Against Medical Advice) Activity Restrictions/Additional Instructions: Return immediately if you change your mind for further treatment. Prescriptions: No Action esomeprazole magnesium 40 mg capsule,delayed release(DR/EC) 40 mg PO BID Qty: 90 1RF triamcinolone acetonide 0.5 % cream 1 applic topical BID Qty: 15 1RF rosuvastatin 5 mg tablet 5 mg PO DAILY Qty: 90 2RF pregabalin [Lyrica] 50 mg capsule 50 mg PO BID Qty: 60 2RF fenofibrate 160 mg tablet 160 mg PO DAILY Qty: 90 0RF albuterol sulfate 90 mcg/actuation HFA aerosol inhaler 2 puff inhalation Q4H PRN (Reason: for dyspnea) Qty: 6.7 1RF methocarbamol 500 mg tablet 500 mg PO TID PRN (Reason: mm strain) Qty: 30 1RF Rx Instructions: Take one tablet up to 3 times a day as needed for muscle spasm pantoprazole 20 mg tablet,delayed release (DR/EC) 20 mg PO DAILY Qty: 90 1RF meloxicam 15 mg tablet 15 mg PO DAILY Qty: 30 2RF estradiol 0.01 % (0.1 mg/gram) cream 0.25 appful vaginal BEDTIME Qty: 42.5 3RF Rx Instructions: Apply 1/4 applicatorful via fingertip to vaginal opening and external area nightly for 2 weeks then twice weekly thereafter cefuroxime axetil 250 mg tablet 250 mg PO BID Qty: 20 0RF ketoconazole 2 % shampoo 1 applic topical 3XW Qty: 120 3RF sucralfate 1 gram tablet 1 g PO QID PRN (Reason: Dyspepsia) Referrals: Rylan Soni DO [Primary Care Provider] - Stand Alone Forms: Patient Portal/API, Against Medical Advice
[2024-04-01 12:34] LABS: NT-proBNP (BNP-Adult 18+) 72 pg/mL (<125); Troponin I < 0.012 ng/mL (0.01-0.034)
[2024-04-01 12:49] LABS: D Dimer 517 ng/ml (<500)
[2024-04-01 14:15] LABS: Creatine Kinase 124 U/L (30-135)
[2024-04-01 14:28] LABS: Troponin I < 0.012 ng/mL (0.01-0.034)
== END 2024-04-01 14:59 | disposition left against medical advice (07) ==
PROVIDERS: Emergency Provider Emergency Medicine; PCP Family Medicine
DX: R07.9 Chest pain, unspecified (principal)
CPT/HCPCS: 36415; 71045; 80053; 82550; 83690; 83735; 83880; 84484; 85025; 85379; 85610; 85730; 93005; 99283; 99284

== ENCOUNTER → 2024-09-22 10:22 | Outpatient (CLI) | payer OTHER, SELFPAY ==
--- NOTE | 2024-09-22 10:24 | DI.RAD.S_ITS ---
PROCEDURE: XR HIP W PEL IF DONE BILAT 2V INDICATIONS: SOFIA HIP PAIN TECHNIQUE: AP pelvis with lateral view(s) of the both hip(s). COMPARISON: None. FINDINGS: Bones: There are no osseous abnormalities. SI and hip joints: Severe left and moderate right hip degeneration noted. Both SI joints are normal. Moderate L5-S1 degenerative disc disease is seen. Soft tissues: No soft tissue swelling, calcification or mass. IMPRESSION: Degeneration Dictated by: Reginaldo Contreras M.D. on 09/23/2024 at 11:43 Approved by: Reginaldo Contreras M.D. on 09/23/2024 at 11:44
== END ==
PROVIDERS: PCP Family Medicine; Referring Provider Family Medicine; Visit Provider Family Medicine
DX: M16.0 Bilateral primary osteoarthritis of hip (principal); M47.816 Spondylosis without myelopathy or radiculopathy, lumbar region; M47.817 Spondylosis without myelopathy or radiculopathy, lumbosacral region; M25.551 Pain in right hip; M25.552 Pain in left hip; R00.2 Palpitations; I10 Essential (primary) hypertension; R73.03 Prediabetes
CPT/HCPCS: 73521

== ENCOUNTER → 2024-10-30 12:59 | Outpatient (CLI) | payer OTHER, SELFPAY ==
[2024-10-30 13:22] LABS: Add Manual Diff / Slide Review NO; Hematocrit 39.1 % (36-46); Hemoglobin 13.8 g/dL (12.0-16.0); Lymphocytes Absolute Auto 2300 /uL (1100-4500); Mean Corpuscular HGB Conc 35.4 % (30-36); Mean Corpuscular Hemoglobin 33.5 PG (26-34); Mean Corpuscular Volume 94.8 fL (80-100); Platelet Count 202 X10^3/uL (150-400)
[2024-10-30 13:31] LABS: Hemoglobin A1C% w Est Avg Glu 5.5 % (4.0-6.0)
[2024-10-30 13:49] LABS: Albumin 4.4 g/dL (3.5-5.0)
[2024-10-30 13:54] LABS: Alanine Aminotransferase 28 IU/L (<35); Albumin 4.4 g/dL (3.5-5.0); Albumin Globulin Ratio 1.4 (1.0-2.8); Alkaline Phosphatase 67 U/L (38-126); Blood Urea Nitrogen 19 mg/dL (7-17); Calcium 10.0 mg/dL (8.4-10.2); Carbon Dioxide 19 mmol/L (22-32); Chloride 106 mmol/L (98-107); Estimated Glomerular Filt Rate 56 mL/min (>60); Globulin 3.1 g/dL (1.7-4.1); Glucose 115 mg/dL (70-99); HEMOLYSIS < 15 (0-50); Potassium 4.7 mmol/L (3.4-5.1); Sodium 136 mmol/L (137-145); Total Protein 7.5 g/dL (6.3-8.2)
[2024-10-30 14:00] LABS: Prealbumin 32.3 mg/dL (17.6-36.0)
[2024-10-30 14:24] LABS: Thyroid Stimulating Hormone 1.17 uIU/mL (0.47-4.68)
[2024-10-30 15:19] LABS: Vitamin D 25 Hydroxy (D3) 25.3 ng/mL (30.0-100.0)
== END ==
PROVIDERS: PCP Family Medicine; Referring Provider Orthopaedic Surgery Adult Reconstructive Orthopaedic Surgery; Visit Provider Orthopaedic Surgery Adult Reconstructive Orthopaedic Surgery
DX: Z01.812 Encounter for preprocedural laboratory examination (principal); R73.03 Prediabetes; R00.2 Palpitations; M25.551 Pain in right hip; M25.552 Pain in left hip; I10 Essential (primary) hypertension; M47.816 Spondylosis without myelopathy or radiculopathy, lumbar region
CPT/HCPCS: 36415; 80053; 82040; 82306; 83036; 84134; 84443; 85025

== ENCOUNTER → 2024-11-19 11:48 | Outpatient (CLI) | payer OTHER, SELFPAY ==
--- NOTE | 2024-11-19 12:03 | EKG_ITS ---
[address] [address] Test Date: 2024-11-19 Pat Name: Priyanka Braga Department: [facility] Room: Gender: Female Sales Recruitment Specialist: : [id number] Requested By: Order Number: [id number] Reading MD: Juan Elder Measurements Intervals [place] Rate: 69 P: 54 MO: 170 QRS: 17 QRSD: 90 T: 72 QT: 386 QTc: 413 Interpretive Statements Normal sinus rhythm T wave abnormality, consider anterior ischemia Electronically Signed On 11-22-2024 9:21:14 PDT by Juan Elder
== END ==
PROVIDERS: PCP Family Medicine; Referring Provider Orthopaedic Surgery Adult Reconstructive Orthopaedic Surgery; Visit Provider Orthopaedic Surgery Adult Reconstructive Orthopaedic Surgery
DX: Z01.810 Encounter for preprocedural cardiovascular examination (principal)
CPT/HCPCS: 93005

== ENCOUNTER → 2024-11-21 14:30 | Outpatient (CLI) | payer OTHER, SELFPAY | PROVIDERS: PCP Family Medicine; Referring Provider Orthopaedic Surgery Adult Reconstructive Orthopaedic Surgery; Visit Provider Orthopaedic Surgery Adult Reconstructive Orthopaedic Surgery | DX: F17.200 Nicotine dependence, unspecified, uncomplicated (principal) | CPT/HCPCS: 80321 ==

== ENCOUNTER 2025-02-02 13:36 | Emergency (ER) | payer OTHER, SELFPAY ==
--- NOTE | 2025-02-02 13:51 | DI.RAD.S_ITS ---
PROCEDURE: XR SHOULDER LT MIN 2V INDICATIONS: shoulder pain TECHNIQUE: 3 views of the shoulder were acquired. COMPARISON: None. FINDINGS: Bones: Acute left humeral surgical neck fracture which extends to the greater tuberosity and lesser tuberosity with minimal displacement. There is mild marginal impaction. Soft tissues: No suspicious soft tissue calcifications. IMPRESSION: Acute left humeral surgical neck fracture with extension to the lesser and greater tuberosity and mild marginal impaction. Dictated by: Noam Hager M.D. on 02/02/2025 at 14:12 Approved by: Noam Hager M.D. on 02/02/2025 at 14:12
[2025-02-02 13:52] VITALS: BP 188/92; PULSE 90; RESP 18; TEMP 37.1; O2SAT 98; BMI 27.3
[2025-02-02 17:10] VITALS: BP 153/86; PULSE 92; RESP 18; O2SAT 95
--- NOTE | 2025-02-03 14:46 | ED.UPPEXIN ---
HPI - Extremity Injury (Upper) <Favio Bryant PA-C - Last Filed: 02/03/25 14:55> General Chief Complaint: Extremity Injury, Upper Stated Complaint: Left shoulder pain. possible dislocation, Time Seen by Provider: 02/02/25 15:20 Source: patient Mode of arrival: Ambulatory History of Present Illness HPI narrative: 69-year-old female presents to the ED status post a left shoulder injury sustained earlier today. Patient accidentally fell through a rotten board while fixing her deck. Patient is complaining of swelling, pain in the left shoulder. Patient holding left arm in adduction. No numbness, tingling, weakness. No head strike. No loss of consciousness. Related Data Previous Rx's ?Medication ?Instructions ?Recorded fenofibrate 160 mg tablet 160 mg PO DAILY #90 tabs 02/20/24 triamcinolone acetonide 0.5 % 1 applic topical BID #15 grams 05/16/24 topical cream pantoprazole 20 mg tablet,delayed 20 mg PO BID #180 tabs 06/13/24 release albuterol sulfate 90 mcg/actuation 2 puff inhalation Q4H PRN for 08/11/24 aerosol inhaler dyspnea #6.7 grams ketoconazole 2 % shampoo 1 applic topical 3XW #120 mL 08/11/24 varenicline tartrate 0.5 mg (11)-1 See Rx Instructions PO PER PKG DIR 10/28/24 mg (42) tablets in a dose pack #53 ea varenicline tartrate 1 mg tablet 1 mg PO BID #56 tabs 10/30/24 pregabalin 50 mg capsule (Lyrica) 50 mg PO BID #270 caps 12/05/24 pravastatin 20 mg tablet 20 mg PO BEDTIME #90 tabs 12/29/24 docusate sodium 100 mg capsule 100 mg PO BID PRN constipation #60 02/04/25 (Colace) caps oxycodone-acetaminophen 5 mg-325 1 tab PO Q6H PRN pain #20 tabs 02/09/25 mg tablet (Percocet) Allergies Allergy/AdvReac Type Severity Reaction Status Date / Time No Known Drug Allergies Allergy Verified 02/04/25 15:01 Review of Systems <Favio Bryant PA-C - Last Filed: 02/03/25 14:55> Constitutional Constitutional: Denies chills, Denies fatigue, Denies fever(s), Denies frequent falls, Denies lethargy and Denies weakness Eyes Eyes: Denies change in vision, Denies eye discharge, Denies irritation and Denies loss of vision ENT Ears, Nose, Mouth, and Throat: Denies change in voice, Denies dizziness, Denies neck pain, Denies sore throat and Denies throat swelling Cardiovascular Cardiovascular: Denies chest pain, Denies irregular heart rhythm, Denies lightheadedness, Denies palpitations, Denies dyspnea, Denies dyspnea on exertion and Denies orthopnea Respiratory Respiratory: Denies cough, Denies dyspnea, Denies dyspnea on exertion and Denies wheezing Gastrointestinal Gastrointestinal: Denies abdominal pain, Denies change in bowel habits, Denies diarrhea, Denies nausea and Denies vomiting Musculoskeletal Musculoskeletal: Denies neck pain and Denies numbness Comments: Left shoulder swelling, pain Integumentary/Breasts Skin/Breast: Denies pruritus, Denies erythema, Denies rash and Denies wounds Neurologic Neurologic: Denies behavioral changes, Denies confusion, Denies dizziness, Denies frequent falls, Denies loss of vision, Denies numbness and Denies weakness Psychiatric Psychiatric: Denies anxiety, Denies behavioral changes, Denies confusion, Denies depression, Denies homicidal ideation and Denies suicidal ideation Endocrine Endocrine: Denies fatigue, Denies flushing and Denies palpitations Hematologic/Lymphatic Hematologic/Lymphatic: Denies easy bruising Allergic/Immunologic Allergic/Immunologic: Denies urticaria, Denies throat swelling and Denies wheezing Patient History <Favio Bryant PA-C - Last Filed: 02/03/25 14:55> Medical History Bilateral hip pain Palpitations Hypertension Atypical chest pain Neck pain Lumbar spondylosis Low back pain Neurogenic claudication Lumbar radiculopathy Refractory sinusitis Gastritis Skin lesion Lipoma Cough Left knee pain Vaginitis Lumbar strain Pre-diabetes Wears glasses Fractures Tubal Skin cancer (~2017) Hypertriglyceridemia Neck mass Sialoadenitis of submandibular gland Hiatal hernia Gastric ulcer Colitis Surgical History Anesthesia Status post Mohs surgery (~2017) Status post surgical removal of both fallopian tubes (~1979) History of appendectomy (~1979) Family History Father Cancer History of heart disease Mother Cancer History of heart disease Sister Alcoholism Social History household members: spouse quit status: considering quitting alcohol intake: current tobacco type: cigarettes alcohol intake frequency: 3 or more drinks per day Alcohol type: hard liquor Exam <Favio Bryant PA-C - Last Filed: 02/03/25 14:55> Narrative Exam Narrative: Const General:?cooperative, healthy appearing and comfortable [facility] Head:?normal to inspection Ears:?hearing grossly normal bilaterally Nose:?external nose normal Face and sinus:?normal facial exam and sinuses nontender Mouth:?oral mucosae normal Throat:?posterior oropharynx normal Eyes General:?appearance normal, both eyes and all related structures Neck Neck:?normal visual inspection and no lymphadenopathy noted Resp Effort & Inspection:?normal respiratory effort Auscultation:?clear to auscultation bilaterally Cardio Rate:?regular rate Rhythm:?regular rhythm Musculoskeletal Swelling, deformity of the anterior left shoulder. Patient holding left arm in adduction. Neurovascularly intact. Neuro General:?patient alert, patient awake and patient oriented x3 Initial Vital Signs Initial Vital Signs: Vital Signs Temperature 98.8 F 02/02/25 13:52 Pulse Rate 90 02/02/25 13:52 Respiratory Rate 18 02/02/25 13:52 Blood Pressure 188/92 H 02/02/25 13:52 Pulse Oximetry 98 02/02/25 13:52 Oxygen Delivery Method Room Air 02/02/25 13:52 <Paul Arredondo MD - Last Filed: 02/10/25 23:49> Initial Vital Signs Initial Vital Signs: Vital Signs Temperature 98.8 F 02/02/25 13:52 Pulse Rate 90 02/02/25 13:52 Respiratory Rate 18 02/02/25 13:52 Blood Pressure 188/92 H 02/02/25 13:52 Pulse Oximetry 98 02/02/25 13:52 Oxygen Delivery Method Room Air 02/02/25 13:52 Course <Favio Bryant PA-C - Last Filed: 02/03/25 14:55> Orders Ordered: Discontinued Medications Hydromorphone HCl (Hydromorphone 1 Mg/Ml Syringe) 1 mg IM NOW ONE Stop: 02/02/25 16:10 Last Admin: 02/02/25 16:17 Dose: 1 mg Documented By: MANOJ <Paul Arredondo MD - Last Filed: 02/10/25 23:49> Orders Ordered: Discontinued Medications Hydromorphone HCl (Hydromorphone 1 Mg/Ml Syringe) 1 mg IM NOW ONE Stop: 02/02/25 16:10 Last Admin: 02/02/25 16:17 Dose: 1 mg Documented By: MANOJ [facility] - Extremity Injury (Upper) <Favio Bryant PA-C - Last Filed: 02/03/25 14:55> [facility] Narrative Medical decision making narrative: 69-year-old female presents to the ED status post a left shoulder injury sustained earlier today. Patient is holding her left arm in adduction, there is a visible deformity and swelling. X-ray was obtained which shows an acute left humeral surgical neck fracture with extension to the lesser and greater tuberosity and mild marginal impaction. Patient is neurovascularly intact. Patient given Dilaudid for pain control, fitted in a sling. Patient given prescription for Percocet. Recommend follow-up with ortho as soon as possible. ED return precautions discussed with patient. Patient verbalized understanding. Medical records reviewed: Yes <Paul Arredondo MD - Last Filed: 02/10/25 23:49> [facility] Narrative Medical decision making narrative: 69-year-old female presents to the ED status post a left shoulder injury sustained earlier today. Patient is holding her left arm in adduction, there is a visible deformity and swelling. X-ray was obtained which shows an acute left humeral surgical neck fracture with extension to the lesser and greater tuberosity and mild marginal impaction. Patient is neurovascularly intact. Patient given Dilaudid for pain control, fitted in a sling. Patient given prescription for Percocet. Recommend follow-up with ortho as soon as possible. ED return precautions discussed with patient. Patient verbalized understanding. Medical records reviewed: Yes I was available for consultation during this patient's vision but was not involved in the care. Discharge Plan Departure Patient Disposition: Home Clinical Impression: Fracture of neck of humerus Qualifiers: Encounter type: initial encounter Fracture type: closed Laterality: left Qualified Code(s): S42.212A - Unspecified displaced fracture of surgical neck of left humerus, initial encounter for closed fracture Instructions: DI for Humeral Fracture Activity Restrictions/Additional Instructions: You were evaluated in the ED today for a shoulder injury. You have a fracture of the neck of the humerus which is the long bone of the upper arm. The treatment for this is to fit you in a sling and allow the bone to heal. You were given a dose of Dilaudid in the ED for pain. You are being sent home with a prescription for Percocet for pain control. Please do be aware that these medications can make you sleepy, therefore please employ good fall precautions. Please follow-up with ortho by calling [phone] for further evaluation and treatment. Return to the ED if you have worsening symptoms, numbness, tingling, weakness. Prescriptions: No Action fenofibrate 160 mg tablet 160 mg PO DAILY Qty: 90 0RF triamcinolone acetonide 0.5 % cream 1 applic topical BID Qty: 15 1RF pantoprazole 20 mg tablet,delayed release (DR/EC) 20 mg PO BID Qty: 180 1RF albuterol sulfate 90 mcg/actuation HFA aerosol inhaler 2 puff inhalation Q4H PRN (Reason: for dyspnea) Qty: 6.7 1RF ketoconazole 2 % shampoo 1 applic topical 3XW Qty: 120 3RF varenicline tartrate 1 mg tablet 1 mg PO BID Qty: 56 1RF Rx Instructions: start maintenance dose after completing starter month pack. pregabalin [Lyrica] 50 mg capsule 50 mg PO BID Qty: 270 1RF pravastatin 20 mg tablet 20 mg PO BEDTIME Qty: 90 1RF oxycodone-acetaminophen [Percocet] 5-325 mg tablet 1 tab PO Q6H PRN (Reason: pain) Qty: 20 0RF docusate sodium [Colace] 100 mg capsule 100 mg PO BID PRN (Reason: constipation) Qty: 60 0RF varenicline tartrate 0.5 mg (11)- 1 mg (42) tablets,dose pack See Rx Instructions PO PER PKG DIR Qty: 53 0RF Rx Instructions: PO PER PKG DIR Referrals: Rylan Soni DO [Primary Care Provider, Family Practice] Stand Alone Forms: Patient Portal/API
== END 2025-02-02 17:13 | disposition home or self-care (01) ==
PROVIDERS: Emergency Provider Student in an Organized Health Care Education/Training Program; PCP Family Medicine
DX: S42.212A Unspecified displaced fracture of surgical neck of left humerus, initial encounter for closed fracture (principal); W19.XXXA Unspecified fall, initial encounter
CPT/HCPCS: 73030; 96372; 99283; J1171